=== PATIENT | male | born 1960 | race Caucasian/White ===

== ENCOUNTER 2016-09-28 08:00 | Outpatient (CLI) | payer MEDICARE, MEDICAID ==
[2016-09-28 19:02] LABS: BASOPHILS # (AUTO) 0.1 10^3/uL (0.0-0.1); BASOPHILS % (AUTO) 0.5 %; EOSINOPHILS # (AUTO) 0.1 10^3/uL (0.0-0.7); HCT - HEMATOCRIT 47.6 % (42.0-52.0); HGB - HEMOGLOBIN 16.1 g/dL (14.0-18.0); LYMPHOCYTES # (AUTO) 2.7 10^3/uL (1.5-3.5); LYMPHOCYTES % (AUTO) 25.2 %; MEAN CORPUSCULAR HGB CONC 33.8 g/dL (32.0-36.0); MEAN CORPUSCULAR VOLUME 94.7 fL (80.0-94.0); MEAN PLATELET VOLUME 8.4 fL (7.4-11.4); NEUTROPHILS # (AUTO) 6.8 10^3/uL (1.5-6.6); NEUTROPHILS % (AUTO) 64.3 %; NUCLEATED RED BLOOD CELLS AUTO 0.1 /100WBC; RED BLOOD COUNT 5.03 10^6/uL (4.70-6.10); RED CELL DISTRIBUTION WIDTH 12.5 % (12.0-15.0); UNCORRECTED WHITE BLOOD COUNT 10.5 x10^3/uL; WHITE BLOOD COUNT 10.5 x10^3/uL (4.8-10.8)
[2016-09-28 19:25] LABS: ALBUMIN/GLOBULIN RATIO 1.1 (1.0-2.2); BILIRUBIN,TOTAL 0.7 mg/dL (0.2-1.0); BUN - BLOOD UREA NITROGEN 18 mg/dL (6-20); CALCIUM 8.9 mg/dL (8.5-10.3); CARBON DIOXIDE - CO2 23 mmol/L (21-32); CHLORIDE 99 mmol/L (101-111); CHOL/HDL RATIO 5.2 (<5.0); CHOLESTEROL 203 mg/dL; CREATININE 0.7 mg/dL (0.6-1.2); GFR - MDRD 118 (>89); GLUCOSE 468 mg/dL (70-100); HDL CHOLESTEROL 39 mg/dL; LDL/HDL RATIO 3.2 (<3.6); POTASSIUM 4.3 mmol/L (3.5-5.0); SODIUM 132 mmol/L (135-145); TOTAL PROTEIN 7.4 g/dL (6.7-8.2); TRIGLYCERIDES 191 mg/dL; VLDL CHOLESTEROL 38 mg/dL
[2016-09-28 19:33] LABS: HEMOGLOBIN A1C 2.55 g/dL
[2016-09-30 15:36] LABS: TEST RESULT REPORT (())
== END 2016-09-28 08:01 | disposition home or self-care (01) ==
LOC: LAB.N 08:00
PROVIDERS: ATTEND Family Medicine
DX: Z79.4 Long term (current) use of insulin (principal)
CPT/HCPCS: 36415; 80053; 80061; 81599; 83036; 84681; 85025

== ENCOUNTER 2017-01-26 15:05 | Outpatient (CLI) | payer MEDICARE, MEDICAID ==
[2017-01-26 12:37] LABS: HEMOGLOBIN A1C 2.44 g/dL
[2017-01-26 12:46] LABS: ALBUMIN/GLOBULIN RATIO 0.9 (1.0-2.2); BILIRUBIN,TOTAL 0.7 mg/dL (0.2-1.0); BUN - BLOOD UREA NITROGEN 18 mg/dL (6-20); CARBON DIOXIDE - CO2 24 mmol/L (21-32); CHLORIDE 96 mmol/L (101-111); CHOL/HDL RATIO 5.1 (<5.0); CHOLESTEROL 189 mg/dL; CREATININE 0.6 mg/dL (0.6-1.2); GFR - MDRD 140 (>89); GLUCOSE 430 mg/dL (70-100); HDL CHOLESTEROL 37 mg/dL; LDL/HDL RATIO 3.2 (<3.6); POTASSIUM 4.4 mmol/L (3.5-5.0); SODIUM 132 mmol/L (135-145); TOTAL PROTEIN 8.1 g/dL (6.7-8.2); TRIGLYCERIDES 159 mg/dL; VLDL CHOLESTEROL 32 mg/dL
== END 2017-01-26 15:06 | disposition home or self-care (01) ==
LOC: LAB.N 15:05
PROVIDERS: ATTEND Family Medicine
DX: E78.5 Hyperlipidemia, unspecified (principal); E11.9 Type 2 diabetes mellitus without complications
CPT/HCPCS: 36415; 80053; 80061; 83036

== ENCOUNTER 2017-08-15 08:00 | Outpatient (CLI) | payer MEDICAID, MEDICARE ==
[2017-08-15 19:18] LABS: CREATININE 0.6 mg/dL (0.6-1.2)
[2017-08-15 20:16] LABS: HB2 TOTAL 17.2 g/dL; HEMOGLOBIN A1C 2.43 g/dL; HEMOGLOBIN A1C % 15.1 % (4.6-6.2)
== END 2017-08-15 08:01 | disposition home or self-care (01) ==
LOC: LAB.N 08:00
PROVIDERS: ATTEND Family Medicine
DX: E11.9 Type 2 diabetes mellitus without complications (principal); Z79.4 Long term (current) use of insulin
CPT/HCPCS: 36415; 80048; 83036

== ENCOUNTER 2017-11-21 14:24 | Outpatient (CLI) | payer MEDICARE ==
[2017-11-21 19:18] LABS: CALCIUM 9.5 mg/dL (8.5-10.3); CREATININE 0.5 mg/dL (0.6-1.2)
[2017-11-21 20:21] LABS: HB2 TOTAL 18.1 g/dL; HEMOGLOBIN A1C 2.39 g/dL; HEMOGLOBIN A1C % 14.2 % (4.6-6.2)
== END 2017-11-21 14:25 | disposition home or self-care (01) ==
LOC: LAB.N 14:24
PROVIDERS: ATTEND Family Medicine
DX: E11.65 Type 2 diabetes mellitus with hyperglycemia (principal); Z79.4 Long term (current) use of insulin
CPT/HCPCS: 36415; 80048; 83036

== ENCOUNTER 2017-12-23 12:54 | Emergency (ER) | payer MEDICARE ==
--- NOTE | 2017-12-23 14:20 | ED Physician Documentation ---
PD HPI ABD PAIN - Stated complaint Stated Complaint: LUMP ON LT SIDE - Chief complaint Chief Complaint: Abd Pain - History obtained from History obtained from: Patient - History of Present Illness Timing - onset: How many weeks ago (has noted lump left abd with some tenderness at times for past few weeks. He has had large weight loss in past 6 months due to dieting, over 100 lbs. Had not noted the lump in the past.) Timing - details: Gradual onset, Intermittant (notes it more with standing.) Quality: Aching (at times, has some pain in the area, crampy.), Pain Location: LLQ Radiation: No: Chest, Left flank Associated symptoms: No: Fever, Nausea, Vomiting, Diarrhea Similar symptoms before: Has not had sx before Recently seen: Not recently seen Review of Systems Constitutional: denies: Fever, Chills Nose: denies: Rhinorrhea / runny nose, Congestion Throat: denies: Sore throat Cardiac: denies: Chest pain / pressure Respiratory: denies: Cough GI: reports: Abdominal Pain. denies: Nausea, Vomiting, Constipation, Diarrhea : denies: Dysuria, Frequency Skin: denies: Rash, Lesions PD PAST MEDICAL HISTORY - Past Medical History Cardiovascular: None Respiratory: None Neuro: None Endocrine/Autoimmune: Type 2 diabetes - Past Surgical History Past Surgical History: Yes General: Cholecystectomy - Present Medications Home Medications: Ambulatory Orders Medication Instructions Recorded Confirmed Insulin Glargine [Lantus] 94 units SUBQ DAILY 09/13/13 09/13/13 Captopril 12.5 mg PO DAILY 02/08/16 02/08/16 metFORMIN [Glucophage] 500 mg PO BIDWM 02/08/16 02/08/16 - Allergies Allergies/Adverse Reactions: Allergies Allergy/AdvReac Type Severity Reaction Status Date / Time Penicillins Allergy Rash Verified 12/23/17 13:02 - Social History Does the pt smoke?: Yes Smoking Status: Current every day smoker Does the pt drink ETOH?: No Does the pt have substance abuse?: No - Immunizations Immunizations are current?: No - POLST Patient has POLST: No PD ED PE NORMAL - Vitals Vital signs reviewed: Yes - General General: Alert and oriented X 3, No acute distress, Well developed/nourished - Cardiac Cardiac: RRR, No murmur - Respiratory Respiratory: Clear bilaterally - Abdomen Abdomen: Normal bowel sounds, Soft, Non distended, No organomegaly, Other (some tenderness with lump feeling left low abd (not inguinal) while standing. Has excess soft tissue pannus c/w prior large weight loss. ) - Male Male : Deferred - Rectal Rectal: Deferred - Back Back: No CVA TTP - Derm Derm: Normal color, Warm and dry, No rash - Neuro Neuro: Alert and oriented X 3, No motor deficit, Normal speech Results - Vitals Vitals: Oxygen O2 Source Room air - Labs Labs: Laboratory Tests 12/23/17 12/23/17 14:35 14:35 WBC 10.8 RBC 5.36 Hgb 17.3 Hct 49.3 MCV 92.0 MCH 32.3 H MCHC 35.1 RDW 12.7 Plt Count 258 MPV 7.6 Neut # (Auto) 6.4 Lymph # (Auto) 2.9 [place] # (Auto) 1.1 H Eos # (Auto) 0.2 Baso # (Auto) 0.1 Absolute Nucleated RBC 0.01 Nucleated RBC % 0.1 Sodium 135 Potassium 3.9 Chloride 96 L Carbon Dioxide 29 Anion Gap 10.0 BUN 14 Creatinine 0.5 L Estimated GFR (MDRD) 173 Glucose 313 H Calcium 9.0 Total Bilirubin 0.6 AST 13 ALT 15 Alkaline Phosphatase 60 Total Protein 8.1 Albumin 4.3 Globulin 3.8 Albumin/Globulin Ratio 1.1 Lipase 52 H - Rads (name of study) abd CT Radiology: Prelim report reviewed (some discoid skin thickening left abd but no hernia. ) PD MEDICAL DECISION MAKING - ED course Complexity details: reviewed results (skin thickening left abd on CT but no mass. I don't think this is the process, as it had felt more lumpy with him standing. I don't think skin thickening would have that feel or be dynamic like that. No obvious mass seen per se. ), considered differential (feels like hernia left abd standing, it goes away lying. Does not feel like other mass. Can get CT to ensure not something else structural. ), d/w patient - Sepsis Event Vital Signs: Oxygen O2 Source Room air Departure - Departure Disposition: 01 Home, Self Care Clinical Impression: Abdominal wall hernia Condition: Stable Record reviewed to determine appropriate education?: Yes Instructions: Abdominal Pain Follow-Up: Zen Fuchs MD [Primary Care Provider] - Bulmaro James MD [Provider Admit Priv/Credential] - Comments: There is a small hernia noted in the bellybutton area on the CT scan. The lump you have had is likely this hernia getting begger that protrudes when you are standing or under pressure. He does not show lying down on the CT scan. There are no other masses or abnormalities noted. Your basic blood tests are good. Follow-up with surgery office regarding further evaluation or potential discussion of repair of the hernia. Return if it ever gets very painful hard or does not go away with lying down. Discharge Date/Time: 12/23/17 16:18
[2017-12-23] MEDS ORDERED: IOPAMIDOL-300 100 ML VIAL ONE (14:42)
[2017-12-23 14:47] LABS: BASOPHILS # (AUTO) 0.1 10^3/uL (0.0-0.1); BASOPHILS % (AUTO) 1.2 %; EOSINOPHILS # (AUTO) 0.2 10^3/uL (0.0-0.7); EOSINOPHILS % (AUTO) 1.6 %; HGB - HEMOGLOBIN 17.3 g/dL (14.0-18.0); LYMPHOCYTES # (AUTO) 2.9 10^3/uL (1.5-3.5); LYMPHOCYTES % (AUTO) 26.9 %; MEAN CORPUSCULAR HEMOGLOBIN 32.3 pg (27.0-31.0); MEAN CORPUSCULAR HGB CONC 35.1 g/dL (32.0-36.0); MEAN PLATELET VOLUME 7.6 fL (7.4-11.4); MONOCYTES # (AUTO) 1.1 10^3/uL (0.0-1.0); MONOCYTES % (AUTO) 10.5 %; NEUTROPHILS # (AUTO) 6.4 10^3/uL (1.5-6.6); NEUTROPHILS % (AUTO) 59.8 %; PLT - PLATELET COUNT 258 10^3/uL (130-450); RED BLOOD COUNT 5.36 10^6/uL (4.70-6.10); RED CELL DISTRIBUTION WIDTH 12.7 % (12.0-15.0); WHITE BLOOD COUNT 10.8 x10^3/uL (4.8-10.8)
[2017-12-23 15:00] LABS: ALBUMIN 4.3 g/dL (3.2-5.5); ALBUMIN/GLOBULIN RATIO 1.1 (1.0-2.2); BILIRUBIN,TOTAL 0.6 mg/dL (0.2-1.0); CREATININE 0.5 mg/dL (0.6-1.2); TOTAL PROTEIN 8.1 g/dL (6.7-8.2)
[2017-12-23] MEDS ORDERED: IOPAMIDOL-300 100 ML VIAL IVP ONE (15:18)
--- NOTE | 2017-12-23 15:47 | CT Report ---
Reason: left abd lump/tender; feels like hernia Procedure Date: 12/23/2017 Accession Number: [id number] / [id number] Procedure: CT - Abdomen/Pelvis W/ CPT Code: FULL RESULT: EXAM: CT ABDOMEN AND PELVIS EXAM DATE: 12/23/2017 03:14 PM. CLINICAL HISTORY: Left abd lump/tender; feels like hernia. COMPARISONS: MRCP 05/30/2012. MRI of pelvis 08/07/2008. TECHNIQUE: Routine helical CT imaging was performed through the abdomen and pelvis. IV contrast: 100 cc Isovue-300. Enteric contrast: No. Reconstructions: Coronal and sagittal. In accordance with CT protocol optimization, one or more of the following dose reduction techniques were utilized for this exam: automated exposure control, adjustment of mA and/or KV based on patient size, or use of iterative reconstructive technique. FINDINGS: Lung Bases: Unremarkable. Liver: Normal. No masses. Gallbladder/Bile Ducts: Gallbladder surgically absent. No ductal dilatation. Spleen: Normal. Pancreas: Normal. Adrenal Glands: 1.6 x 1.2 cm low-density, and then right adrenal nodule suggesting an adenoma. Left adrenal gland unremarkable. Kidneys: Normal. No masses or hydronephrosis. Peritoneal Cavity/Bowel: Unopacified stomach and small bowel are nondistended. Appendix is normal. There is a small amount of formed stool in the colon. There is no pericolonic fat stranding. There is no lymphadenopathy, ascites, or pneumoperitoneum. Pelvic Organs: Bladder, prostate gland, and seminal vesicles are unremarkable. Vasculature: Mild aortoiliac atherosclerotic calcification without abnormal dilation. Bones: No significant abnormality. Other: No marker was placed at the area of concern. There is an area of minimal skin thickening measuring about 4 cm transverse by 5 cm craniocaudal in the left mid abdomen slightly above the level of the umbilicus centered on series 3 image 45 and series 6 image 25. No right testis or spermatic cord is identified, as before. Obliquely oriented right upper quadrant anterior abdominal wall subcutaneous scar and mild right rectus abdominis muscle atrophy. Abdominal wall otherwise is unremarkable. IMPRESSION: 1. 4 x 5 cm diskoid area of minimal skin thickening in the left mid abdomen. Correlate with physical examination. Skin biopsy can be performed as clinically indicated. 2. Right testis and spermatic cord are not visualized, as before. 3. Right upper quadrant anterior abdominal wall scar consistent with prior cholecystectomy. 4. Abdominal wall otherwise is unremarkable. No hernia is identified. RADIA
[2017-12-23 16:20] VITALS: BP 127/82
== END 2017-12-23 16:18 | disposition home or self-care (01) ==
LOC: ED 12:54
DX: K43.9 Ventral hernia without obstruction or gangrene (principal); E11.9 Type 2 diabetes mellitus without complications; Z79.4 Long term (current) use of insulin; F17.200 Nicotine dependence, unspecified, uncomplicated
CPT/HCPCS: 36415; 74177; 80053; 83690; 85025; 99283; Q9967

== ENCOUNTER 2018-02-21 08:00 | Outpatient (CLI) | payer MEDICARE ==
[2018-02-21 12:53] LABS: CALCIUM 9.4 mg/dL (8.5-10.3); CREATININE 0.5 mg/dL (0.6-1.2); HB2 TOTAL 17.9 g/dL; HEMOGLOBIN A1C 2.12 g/dL
== END 2018-02-21 08:01 ==
LOC: LAB.N 08:00
PROVIDERS: ATTEND Family Medicine
DX: E11.65 Type 2 diabetes mellitus with hyperglycemia (principal); Z79.4 Long term (current) use of insulin
CPT/HCPCS: 36415; 80048; 83036

== ENCOUNTER 2018-08-03 12:10 | Emergency (ER) | payer MEDICARE ==
[2018-08-03] MEDS ORDERED: SODIUM CHLORIDE 0.9% 1,000 ML IV ONE (13:08)
[2018-08-03 13:34] LABS: BASOPHILS # (AUTO) 0.1 10^3/uL (0.0-0.1); BASOPHILS % (AUTO) 1.3 %; EOSINOPHILS # (AUTO) 0.2 10^3/uL (0.0-0.7); HGB - HEMOGLOBIN 16.1 g/dL (14.0-18.0); LYMPHOCYTES # (AUTO) 1.6 10^3/uL (1.5-3.5); LYMPHOCYTES % (AUTO) 17.5 %; MEAN CORPUSCULAR HEMOGLOBIN 31.5 pg (27.0-31.0); MEAN CORPUSCULAR HGB CONC 33.9 g/dL (32.0-36.0); MEAN CORPUSCULAR VOLUME 92.7 fL (80.0-94.0); MEAN PLATELET VOLUME 7.9 fL (7.4-11.4); MONOCYTES # (AUTO) 0.8 10^3/uL (0.0-1.0); MONOCYTES % (AUTO) 8.6 %; NEUTROPHILS # (AUTO) 6.5 10^3/uL (1.5-6.6); NEUTROPHILS % (AUTO) 70.6 %; PLT - PLATELET COUNT 235 10^3/uL (130-450); RED BLOOD COUNT 5.13 10^6/uL (4.70-6.10); RED CELL DISTRIBUTION WIDTH 12.9 % (12.0-15.0); WHITE BLOOD COUNT 9.3 x10^3/uL (4.8-10.8)
[2018-08-03 13:47] LABS: ALBUMIN 4.1 g/dL (3.2-5.5); BILIRUBIN,TOTAL 1.2 mg/dL (0.2-1.0); CALCIUM 9.2 mg/dL (8.5-10.3); CREATININE 0.6 mg/dL (0.6-1.2); TOTAL PROTEIN 8.1 g/dL (6.7-8.2)
[2018-08-03 14:17] LABS: BILIRUBIN,URINE NEGATIVE (NEGATIVE); GLUCOSE, URINE (UA) >=1000 mg/dL (NEGATIVE); KETONES,URINE (UA) >=80 mg/dL (NEGATIVE); LEUKOCYTE ESTERASE, URINE NEGATIVE (NEGATIVE); NITRITE,URINE NEGATIVE (NEGATIVE); OCCULT BLOOD,URINE TRACE-INTA (NEGATIVE); PH,URINE 5.5 PH (5.0-7.5); PROTEIN,URINE NEGATIVE (NEGATIVE); UROBILINOGEN,URINE 0.2 (NORMAL) E.U./dL (NORMAL)
[2018-08-03 14:18] LABS: CLARITY,URINE CLEAR (CLEAR)
[2018-08-03] MEDS ORDERED: INSULIN REGULAR HUMAN 100 UNIT/1 ML 10 ML MDV SUBQ STA (14:41)
--- NOTE | 2018-08-03 15:49 | ED Physician Documentation ---
History of Present Illness - Stated complaint Stated Complaint: DIABETIC W/A LOT OF URNIATION DOC SENT PT - Chief complaint Chief Complaint: General - History obtained from History obtained from: Patient - Additonal information Additional information: The patient is a 58-year-old diabetic male who complains of generalized weakness and no energy for the past month, but worse since last night. He has not taken insulin for several months, stating he is unable to afford the medication since he is no longer covered by a prescription drug. He denies fever, cough, or abdominal pain. He reports nausea, without vomiting. He reports polyuria and polyphagia. Review of Systems Constitutional: reports: Fatigue. denies: Fever Eyes: denies: Decreased vision Ears: denies: Tinnitus/ringing Nose: denies: Congestion Throat: denies: Sore throat Cardiac: denies: Chest pain / pressure Respiratory: denies: Dyspnea, Cough GI: reports: Nausea. denies: Abdominal Pain, Vomiting : denies: Dysuria Skin: denies: Rash Musculoskeletal: denies: Back pain Neurologic: reports: Generalized weakness. denies: Focal weakness, Numbness, Headache Endocrine: reports: Polydypsia, Polyuria PD PAST MEDICAL HISTORY - Past Medical History Cardiovascular: None Respiratory: None Neuro: None Endocrine/Autoimmune: Type 2 diabetes - Past Surgical History Past Surgical History: Yes General: Cholecystectomy - Present Medications Home Medications: Ambulatory Orders Medication Instructions Recorded Confirmed Insulin Glargine [Lantus] 94 units SUBQ DAILY 09/13/13 09/13/13 Captopril 12.5 mg PO DAILY 02/08/16 02/08/16 metFORMIN [Glucophage] 500 mg PO BIDWM 02/08/16 02/08/16 metFORMIN [Glucophage] 500 mg PO BIDWM #60 tablet 08/03/18 - Allergies Allergies/Adverse Reactions: Allergies Allergy/AdvReac Type Severity Reaction Status Date / Time Penicillins Allergy Rash Verified 08/03/18 12:24 - Social History Does the pt smoke?: Yes Smoking Status: Current every day smoker Does the pt drink ETOH?: No Does the pt have substance abuse?: No - Immunizations Immunizations are current?: No - POLST Patient has POLST: No PD ED PE NORMAL - Vitals Vital signs reviewed: Yes (Borderline systolic hypertension.) - General General: Alert and oriented X 3, Well developed/nourished - HEENT HEENT: Atraumatic, Pharynx benign - Neck Neck: Supple, no meningeal sign, No adenopathy - Cardiac Cardiac: RRR - Respiratory Respiratory: No respiratory distress, Clear bilaterally - Abdomen Abdomen: Soft, Non tender - Back Back: No CVA TTP - Derm Derm: No rash - Extremities Extremities: No edema, No calf tenderness / cord - Neuro Neuro: Alert and oriented X 3, No motor deficit, No sensory deficit Results - Vitals Vitals: Oxygen O2 Source Room air - Labs Labs: Laboratory Tests 08/03/18 08/03/18 08/03/18 12:20 13:14 13:14 WBC 9.3 RBC 5.13 Hgb 16.1 Hct 47.5 MCV 92.7 MCH 31.5 H MCHC 33.9 RDW 12.9 Plt Count 235 MPV 7.9 Neut # (Auto) 6.5 Lymph # (Auto) 1.6 [place] # (Auto) 0.8 Eos # (Auto) 0.2 Baso # (Auto) 0.1 Absolute Nucleated RBC 0.00 Nucleated RBC % 0.0 Sodium 133 L Potassium 4.5 Chloride 97 L Carbon Dioxide 22 Anion Gap 14.0 H BUN 19 Creatinine 0.6 Estimated GFR (MDRD) 139 Glucose 366 H POC Whole Bld Glucose 364 H Calcium 9.2 Total Bilirubin 1.2 H AST 14 ALT 16 Alkaline Phosphatase 56 Total Protein 8.1 Albumin 4.1 Globulin 4.0 Albumin/Globulin Ratio 1.0 Lipase 59 H Urine Color Urine Clarity Urine pH Ur Specific [place] Urine Protein Urine Glucose (UA) Urine Ketones Urine Occult Blood Urine Nitrite Urine Bilirubin Urine Urobilinogen Ur Leukocyte Esterase Ur Microscopic Review Urine Culture Comments 08/03/18 08/03/18 08/03/18 14:10 14:29 15:44 WBC RBC Hgb Hct MCV MCH MCHC RDW Plt Count MPV Neut # (Auto) Lymph # (Auto) [place] # (Auto) Eos # (Auto) Baso # (Auto) Absolute Nucleated RBC Nucleated RBC % Sodium Potassium Chloride Carbon Dioxide Anion Gap BUN Creatinine Estimated GFR (MDRD) Glucose POC Whole Bld Glucose 300 H 251 H Calcium Total Bilirubin AST ALT Alkaline Phosphatase Total Protein Albumin Globulin Albumin/Globulin Ratio Lipase Urine Color YELLOW Urine Clarity CLEAR Urine pH 5.5 Ur Specific [place] 1.020 Urine Protein NEGATIVE Urine Glucose (UA) >=1000 H Urine Ketones >=80 H Urine Occult Blood TRACE-INTA Urine Nitrite NEGATIVE Urine Bilirubin NEGATIVE Urine Urobilinogen 0.2 (NORMAL) Ur Leukocyte Esterase NEGATIVE Ur Microscopic Review NOT INDICATED Urine Culture Comments NOT INDICATED PD MEDICAL DECISION MAKING - ED course Complexity details: reviewed old records, reviewed results, re-evaluated patient, considered differential, d/w patient ED course: The patient's presentation is significant for hyperglycemia, without diabetic ketoacidosis. His initial blood sugar was elevated at 366. His bicarbonate is normal at 22. BUN to creatinine ratio is slightly elevated, with a BUN of 19 and creatinine 0.6. Urinalysis is significant for glucose greater than 1000 and ketones greater than 80. Treatment in the emergency department included administration of normal saline 1 L IV, and insulin 8 units of regular subcutaneously. Repeat blood sugar improved to 251. I discussed with him the importance of resuming his diabetic medication. He advises that there is no way he can afford to resume insulin, but he agrees to fill a prescription for metformin. I discussed with him the importance of outpatient follow-up, as well as potentially worrisome signs or symptoms that should prompt reevaluation is needed emergency department. Departure - Departure Disposition: Home, Self Care Clinical Impression: Hyperglycemia due to type 2 diabetes mellitus Qualifiers: Diabetes mellitus fpc insulin use: without intermodal owner operator truck driver use Qualified Code(s): E11.65 - Type 2 diabetes mellitus with hyperglycemia Condition: Stable Instructions: ED Hyperglycemia Diabetic Follow-Up: [facility] [Provider Group] Prescriptions: metFORMIN [Glucophage] 500 mg PO BIDWM #60 tablet Comments: Drink plenty of fluids. Take metformin twice daily as prescribed. Follow-up with your primary physician within 1 week if possible. Call to schedule an appointment. Return to the emergency department if you develop increasing abdominal pain, vomiting, shortness of breath, or otherwise worsening symptoms. Discharge Date/Time: 08/03/18 15:51
[2018-08-03 16:00] VITALS: BP 129/82
== END 2018-08-03 15:51 | disposition home or self-care (01) ==
LOC: ED 12:10
DX: E11.65 Type 2 diabetes mellitus with hyperglycemia (principal); T38.3X6A Underdosing of insulin and oral hypoglycemic [antidiabetic] drugs, initial encounter; Z91.120 Patient's intentional underdosing of medication regimen due to financial hardship; F17.200 Nicotine dependence, unspecified, uncomplicated
CPT/HCPCS: 36415; 80053; 81003; 83690; 85025; 96360; 99283; J1815; 81001; 87086

== ENCOUNTER 2018-10-30 08:00 | Outpatient (CLI) | payer MEDICARE ==
[2018-10-30 20:19] LABS: HB2 TOTAL 16.2 g/dL; HEMOGLOBIN A1C 2.39 g/dL; HEMOGLOBIN A1C % 15.6 % (4.6-6.2)
== END 2018-10-30 23:59 | disposition home or self-care (01) ==
LOC: LAB.N 08:00
PROVIDERS: ATTEND Physician Assistant Medical
DX: E11.40 Type 2 diabetes mellitus with diabetic neuropathy, unspecified (principal)
CPT/HCPCS: 36415; 83036

== ENCOUNTER 2019-04-18 10:41 | Outpatient (CLI) | payer MEDICARE ==
[2019-04-18 11:57] LABS: ALBUMIN 3.6 g/dL (3.2-5.5); ALKALINE PHOSPHATASE 45 IU/L (42-121); ALT ALANINE AMINOTRANSFERASE 16 IU/L (10-60); AST ASPARTATE AMINOTRANSFERASE 12 IU/L (10-42); BILIRUBIN,TOTAL 0.6 mg/dL (0.2-1.0); BUN - BLOOD UREA NITROGEN 13 mg/dL (6-20); CALCIUM 8.8 mg/dL (8.5-10.3); CARBON DIOXIDE - CO2 28 mmol/L (21-32); CHLORIDE 96 mmol/L (101-111); CHOL/HDL RATIO 4.6 (<5.0); CHOLESTEROL 205 mg/dL; CREATININE 0.6 mg/dL (0.6-1.2); GFR - MDRD 139 (>89); GLUCOSE 490 mg/dL (70-100); HDL CHOLESTEROL 45 mg/dL; LDL CHOLESTEROL,CALCULATED 116 mg/dL; LDL/HDL RATIO 2.6 (<3.6); SODIUM 136 mmol/L (135-145); TOTAL PROTEIN 7.2 g/dL (6.7-8.2); VLDL CHOLESTEROL 44 mg/dL
[2019-04-18 13:51] LABS: BASOPHILS # (AUTO) 0.1 10^3/uL (0.0-0.1); BASOPHILS % (AUTO) 0.9 %; EOSINOPHILS # (AUTO) 0.2 10^3/uL (0.0-0.7); HGB - HEMOGLOBIN 15.6 g/dL (14.0-18.0); LYMPHOCYTES # (AUTO) 2.3 10^3/uL (1.5-3.5); LYMPHOCYTES % (AUTO) 22.6 %; MEAN CORPUSCULAR HEMOGLOBIN 30.3 pg (27.0-31.0); MEAN CORPUSCULAR HGB CONC 32.3 g/dL (32.0-36.0); MEAN CORPUSCULAR VOLUME 93.8 fL (80.0-94.0); MEAN PLATELET VOLUME 9.9 fL (7.4-11.4); MONOCYTES % (AUTO) 9.7 %; NEUTROPHILS # (AUTO) 6.6 10^3/uL (1.5-6.6); NEUTROPHILS % (AUTO) 64.4 %; PLT - PLATELET COUNT 272 10^3/uL (130-450); RED BLOOD COUNT 5.15 10^6/uL (4.70-6.10); RED CELL DISTRIBUTION WIDTH 12.7 % (12.0-15.0); WHITE BLOOD COUNT 10.2 x10^3/uL (4.8-10.8)
[2019-04-18 14:56] LABS: HB2 TOTAL 15.5 g/dL; HEMOGLOBIN A1C 2.06 g/dL; HEMOGLOBIN A1C % 14.3 % (4.6-6.2)
== END 2019-04-18 23:59 | disposition home or self-care (01) ==
LOC: LAB.N 10:41
PROVIDERS: ATTEND Physician Assistant Medical
DX: E11.65 Type 2 diabetes mellitus with hyperglycemia (principal); Z79.4 Long term (current) use of insulin; K21.9 Gastro-esophageal reflux disease without esophagitis; E78.5 Hyperlipidemia, unspecified; E11.40 Type 2 diabetes mellitus with diabetic neuropathy, unspecified
CPT/HCPCS: 36415; 80053; 80061; 83036; 83721; 85025

== ENCOUNTER 2019-11-10 21:12 | Emergency (ER) | payer MEDICARE ==
[2019-11-10 21:20] VITALS: BP 133/72
--- NOTE | 2019-11-10 21:26 | ED Physician Documentation ---
History of Present Illness - Stated complaint Stated Complaint: BILAT FOOT PX/DIABETIC - Chief complaint Chief Complaint: Cardiac - History obtained from History obtained from: Patient - Additonal information Additional information: Patient is a 59-year-old male who is insulin-dependent diabetic reports he is not been checking his blood sugars. However tonight he is here because he is noticed some paresthesias in his feet and he would like to be evaluated. He denies any pain in his feet he does report some minimal swelling of the feet that is worse when he has been standing on his feet all day long but is improved when he wakes up in the morning. He denies any fevers or any trauma or open wounds to the feet. Denies any other complaints. Review of Systems Constitutional: reports: Reviewed and negative Eyes: reports: Reviewed and negative Ears: reports: Reviewed and negative Nose: reports: Reviewed and negative Throat: reports: Reviewed and negative Cardiac: reports: Reviewed and negative Respiratory: reports: Reviewed and negative GI: reports: Reviewed and negative : reports: Reviewed and negative Skin: reports: Reviewed and negative Musculoskeletal: reports: Other (Bilateral foot paresthesias) Neurologic: reports: Reviewed and negative Psychiatric: reports: Reviewed and negative Endocrine: reports: Reviewed and negative Immunocompromised: reports: Reviewed and negative PD PAST MEDICAL HISTORY - Past Medical History Cardiovascular: None Respiratory: None Neuro: None Endocrine/Autoimmune: Type 2 diabetes - Past Surgical History Past Surgical History: Yes General: Cholecystectomy - Present Medications Home Medications: Ambulatory Orders Medication Instructions Recorded Confirmed Insulin Glargine [Lantus] 94 units SUBQ DAILY 09/13/13 09/13/13 Captopril 12.5 mg PO DAILY 02/08/16 02/08/16 metFORMIN [Glucophage] 500 mg PO BIDWM 02/08/16 02/08/16 metFORMIN [Glucophage] 500 mg PO BIDWM #60 tablet 08/03/18 - Allergies Allergies/Adverse Reactions: Allergies Allergy/AdvReac Type Severity Reaction Status Date / Time Penicillins Allergy Rash Verified 11/10/19 21:20 - Social History Does the pt smoke?: Yes Smoking Status: Current every day smoker Does the pt drink ETOH?: No Does the pt have substance abuse?: No - Immunizations Immunizations are current?: No - POLST Patient has POLST: No PD ED PE NORMAL - Vitals Vital signs reviewed: Yes - General General: Alert and oriented X 3, No acute distress, Well developed/nourished - HEENT HEENT: PERRL, Moist mucous membranes - Neck Neck: Supple, no meningeal sign, No adenopathy - Cardiac Cardiac: RRR, No murmur, Strong equal pulses - Respiratory Respiratory: No respiratory distress, Clear bilaterally - Abdomen Abdomen: Normal bowel sounds, Soft, Non tender, Non distended, No organomegaly - Derm Derm: Normal color, Warm and dry, No rash - Extremities Extremities: No deformity, No tenderness to palpate, Normal ROM s pain, No edema, No calf tenderness / cord, Other (Bilateral feet with no obvious deformities sensations intact. 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 He does have insulin he is going to follow- up with his primary care provider tomorrow morning. Educated this patient on protection of his feet and the importance of checking his blood sugars. Departure - Departure Disposition: 01 Home, Self Care Clinical Impression: Insulin dependent diabetes mellitus, Hyperglycemia Diabetic neuropathy Qualifiers: Diabetes mellitus type: other specified (including GEORGE) Diabetes mellitus complication detail: diabetic polyneuropathy Qualified Code(s): E13.42 - Other specified diabetes mellitus with diabetic polyneuropathy Condition: Stable Instructions: Diabetes Inspect Feet, ED Neuropathy Peripheral Follow-Up: JUAN GREENE MD [Primary Care Provider] - Tomorrow Comments: Follow-up with your primary care provider tomorrow. Use your insulin as directed.
== END 2019-11-10 22:15 | disposition home or self-care (01) ==
LOC: ED 21:12
DX: E11.65 Type 2 diabetes mellitus with hyperglycemia (principal); E11.40 Type 2 diabetes mellitus with diabetic neuropathy, unspecified; F17.200 Nicotine dependence, unspecified, uncomplicated; Z79.4 Long term (current) use of insulin
CPT/HCPCS: 99282; 99284

== ENCOUNTER 2020-03-30 23:21 | Emergency (ER) | payer MEDICARE, OTHER ==
--- NOTE | 2020-03-31 00:41 | ED Physician Documentation ---
History of Present Illness - Stated complaint Stated Complaint: RT FOOT PROBLEMS - Chief complaint Chief Complaint: Wound - History obtained from History obtained from: Patient - History of Present Illness Timing: Enter time (18:00), Today Pain level max: 0 Pain level now: 0 - Additonal information Additional information: tonight at 6PM while in shower, patient noticed mild redness, swelling, and skin breakdown of right great and second toe. he had similar problem with left toes in the past which initially responded to antibiotics but eventually required amputation. he has h/o left-sided lower extremity vascular surgery for PVD. he is diabetic and has peripheral neuropathy Review of Systems Constitutional: reports: Reviewed and negative Musculoskeletal: reports: Extremity swelling. denies: Pain with weight bearing Neurologic: reports: Numbness (chronic (peripheral neuropathy)) PD PAST MEDICAL HISTORY - Past Medical History Past Medical History: Yes Cardiovascular: High cholesterol, Peripheral Vascular Disease Respiratory: None Neuro: None Endocrine/Autoimmune: Type 2 diabetes HEENT: None - Past Surgical History Past Surgical History: Yes General: Cholecystectomy - Present Medications Home Medications: Ambulatory Orders Medication Instructions Recorded Confirmed Insulin Glargine [Lantus] 30 units SUBQ DAILY 09/13/13 03/31/20 metFORMIN [Glucophage] 500 mg PO BIDWM #60 tablet 08/03/18 03/31/20 Atorvastatin [Lipitor] 03/31/20 Clopidogrel [Plavix] 75 mg PO DAILY 03/31/20 03/31/20 Insulin Aspart [NovoLOG] 5 unit 03/31/20 clindamycin HCL [Clindamycin HCl] 300 mg PO QID #20 capsule 03/31/20 - Allergies Allergies/Adverse Reactions: Allergies Allergy/AdvReac Type Severity Reaction Status Date / Time Penicillins Allergy Rash Verified 03/30/20 23:25 - Social History Does the pt smoke?: Yes Smoking Status: Current every day smoker Does the pt drink ETOH?: No Does the pt have substance abuse?: No - Immunizations Immunizations are current?: No - POLST Patient has POLST: No PD ED PE NORMAL - Vitals Vital signs reviewed: Yes - General General: Alert and oriented X 3, No acute distress, Well developed/nourished PD ED PE EXPANDED - Extremities Extremities: Right toe(s), Pedal Pulses Present, Other (mild erythema, mild swelling of right great and second toes. on pad of right great toe, there is mild skin breakdown without paula ulceration. on pad of 2nd toe, there is firm, clear blister). No: Tenderness Results - Vitals Vitals: Oxygen O2 Source Room air PD MEDICAL DECISION MAKING - ED course Complexity details: considered differential, d/w patient ED course: diabetic with peripheral neuropathy and h/o amputation of left toes and subsequent surgery to address poor circulation LLMarie, presents with symptoms in right toes similar to early stages of same problem that he had with toes on left. there is no evidence of acute ischemia nor infarcted tissue; the right great toe and second toe appear hyperemic and there is mild skin breakdown. will rx antibiotic for possible infection but instructed to f/u with his doctor, as peripheral vascular disease jght be a causative or contributing factor which might benefit from outpatient testing Departure - Departure Disposition: 01 Home, Self Care Clinical Impression: Diabetic neuropathy, Toe ulcer due to DM Condition: Good Instructions: ED Infec Skin Cellulitis Prescriptions: clindamycin HCL [Clindamycin HCl] 300 mg PO QID #20 capsule Comments: Follow up with your primary care provider within 3-5 days for recheck of the toes Discharge Date/Time: 03/31/20 01:13
[2020-03-31] MEDS ORDERED: CLINDAMYCIN 150 MG CAPSULE PO STA (01:02)
[2020-03-31 01:13] VITALS: BP 150/78
== END 2020-03-31 01:13 | disposition home or self-care (01) ==
LOC: ED 23:21
DX: E11.621 Type 2 diabetes mellitus with foot ulcer (principal); L97.511 Non-pressure chronic ulcer of other part of right foot limited to breakdown of skin; E11.42 Type 2 diabetes mellitus with diabetic polyneuropathy; E11.51 Type 2 diabetes mellitus with diabetic peripheral angiopathy without gangrene; Z79.4 Long term (current) use of insulin; Z89.422 Acquired absence of other left toe(s); F17.200 Nicotine dependence, unspecified, uncomplicated; Z79.02 Long term (current) use of antithrombotics/antiplatelets
CPT/HCPCS: 99281; 99282; A9270

== ENCOUNTER 2020-08-04 08:00 | Outpatient (CLI) | payer MEDICARE ==
[2020-08-04 13:04] LABS: BASOPHILS # (AUTO) 0.1 10^3/uL (0.0-0.1); BASOPHILS % (AUTO) 0.6 %; EOSINOPHILS # (AUTO) 0.2 10^3/uL (0.0-0.7); EOSINOPHILS % (AUTO) 2.2 %; HCT - HEMATOCRIT 47.5 % (42.0-52.0); HGB - HEMOGLOBIN 15.5 g/dL (14.0-18.0); LYMPHOCYTES # (AUTO) 2.2 10^3/uL (1.5-3.5); LYMPHOCYTES % (AUTO) 19.8 %; MEAN CORPUSCULAR HEMOGLOBIN 31.2 pg (27.0-31.0); MEAN CORPUSCULAR HGB CONC 32.6 g/dL (32.0-36.0); MEAN CORPUSCULAR VOLUME 95.6 fL (80.0-94.0); MONOCYTES # (AUTO) 1.1 10^3/uL (0.0-1.0); MONOCYTES % (AUTO) 10.1 %; NEUTROPHILS # (AUTO) 7.4 10^3/uL (1.5-6.6); PLT - PLATELET COUNT 264 10^3/uL (130-450); RED BLOOD COUNT 4.97 10^6/uL (4.70-6.10); RED CELL DISTRIBUTION WIDTH 12.4 % (12.0-15.0)
[2020-08-04 13:25] LABS: ALBUMIN 3.9 g/dL (3.2-5.5); ALBUMIN/GLOBULIN RATIO 1.1 (1.0-2.2); ALKALINE PHOSPHATASE 54 IU/L (42-121); ALT ALANINE AMINOTRANSFERASE 12 IU/L (10-60); AST ASPARTATE AMINOTRANSFERASE 11 IU/L (10-42); BILIRUBIN,TOTAL 0.6 mg/dL (0.2-1.0); BUN - BLOOD UREA NITROGEN 17 mg/dL (6-20); CALCIUM 9.5 mg/dL (8.5-10.3); CARBON DIOXIDE - CO2 28 mmol/L (21-32); CHLORIDE 101 mmol/L (101-111); CHOL/HDL RATIO 5.3 (<5.0); CHOLESTEROL 259 mg/dL; CREATININE 0.7 mg/dL (0.6-1.2); GFR - MDRD 116 (>89); GLUCOSE 394 mg/dL (70-100); HDL CHOLESTEROL 49 mg/dL; LDL CHOLESTEROL,CALCULATED 146 mg/dL; POTASSIUM 4.1 mmol/L (3.5-5.0); SODIUM 139 mmol/L (135-145); TOTAL PROTEIN 7.4 g/dL (6.7-8.2); TRIGLYCERIDES 322 mg/dL; VLDL CHOLESTEROL 64 mg/dL
[2020-08-04 13:31] LABS: THYROID STIMULATING HORMONE 1.86 uIU/mL (0.34-5.60)
[2020-08-04 13:42] LABS: ESTIMATED AVERAGE GLUCOSE 364 mg/dL (70-100); HEMOGLOBIN A1c% 14.3 % (4.27-6.07)
== END 2020-08-04 23:59 | disposition home or self-care (01) ==
LOC: LAB.WCP 08:00
PROVIDERS: ATTEND Nurse Practitioner Family
DX: E78.5 Hyperlipidemia, unspecified (principal); E11.9 Type 2 diabetes mellitus without complications
CPT/HCPCS: 36415; 80053; 80061; 83036; 83721; 84443; 85025

== ENCOUNTER 2020-11-20 08:00 | Outpatient (CLI) | payer MEDICARE ==
[2020-11-20 18:10] LABS: BASOPHILS # (AUTO) 0.1 10^3/uL (0.0-0.1); BASOPHILS % (AUTO) 0.7 %; EOSINOPHILS # (AUTO) 0.3 10^3/uL (0.0-0.7); EOSINOPHILS % (AUTO) 2.4 %; HCT - HEMATOCRIT 48.1 % (42.0-52.0); HGB - HEMOGLOBIN 15.7 g/dL (14.0-18.0); LYMPHOCYTES # (AUTO) 1.8 10^3/uL (1.5-3.5); LYMPHOCYTES % (AUTO) 16.7 %; MEAN CORPUSCULAR HEMOGLOBIN 31.2 pg (27.0-31.0); MEAN CORPUSCULAR HGB CONC 32.6 g/dL (32.0-36.0); MEAN CORPUSCULAR VOLUME 95.4 fL (80.0-94.0); MEAN PLATELET VOLUME 10.2 fL (7.4-11.4); MONOCYTES # (AUTO) 1.1 10^3/uL (0.0-1.0); MONOCYTES % (AUTO) 10.4 %; NEUTROPHILS # (AUTO) 7.5 10^3/uL (1.5-6.6); NEUTROPHILS % (AUTO) 69.4 %; PLT - PLATELET COUNT 257 10^3/uL (130-450); RED BLOOD COUNT 5.04 10^6/uL (4.70-6.10); RED CELL DISTRIBUTION WIDTH 12.3 % (12.0-15.0); WHITE BLOOD COUNT 10.8 x10^3/uL (4.8-10.8)
[2020-11-20 18:51] LABS: CREATININE,URINE 25.9 mg/dL; MICROALBUM/CREATININE RATIO,UR 544.4 ug/mg (<30.0); MICROALBUMIN,URINE 14.1 mg/dL (0-300.0)
[2020-11-20 18:56] LABS: ALBUMIN/GLOBULIN RATIO 1.1 (1.0-2.2); ALKALINE PHOSPHATASE 53 IU/L (42-121); ALT ALANINE AMINOTRANSFERASE 14 IU/L (10-60); AST ASPARTATE AMINOTRANSFERASE < 10 IU/L (10-42); BILIRUBIN,TOTAL 0.8 mg/dL (0.2-1.0); BUN - BLOOD UREA NITROGEN 20 mg/dL (6-20); CALCIUM 9.4 mg/dL (8.5-10.3); CARBON DIOXIDE - CO2 29 mmol/L (21-32); CHLORIDE 97 mmol/L (101-111); CHOL/HDL RATIO 5.2 (<5.0); CHOLESTEROL 238 mg/dL; CREATININE 0.8 mg/dL (0.6-1.2); GFR - MDRD 99 (>89); GLUCOSE 489 mg/dL (70-100); HDL CHOLESTEROL 46 mg/dL; LDL CHOLESTEROL,CALCULATED 138 mg/dL; POTASSIUM 4.7 mmol/L (3.5-5.0); SODIUM 135 mmol/L (135-145); TOTAL PROTEIN 7.8 g/dL (6.7-8.2); TRIGLYCERIDES 272 mg/dL; VLDL CHOLESTEROL 54 mg/dL
[2020-11-20 21:28] LABS: ESTIMATED AVERAGE GLUCOSE 364 mg/dL (70-100); HEMOGLOBIN A1c% 14.3 % (4.27-6.07)
== END 2020-11-20 23:59 | disposition home or self-care (01) ==
LOC: LAB.WCP 08:00
PROVIDERS: ATTEND Internal Medicine
DX: E11.40 Type 2 diabetes mellitus with diabetic neuropathy, unspecified (principal); Z12.5 Encounter for screening for malignant neoplasm of prostate
CPT/HCPCS: 36415; 80053; 80061; 82043; 82570; 83036; 85025; G0103; 83721; 84153

== ENCOUNTER 2021-06-26 11:07 | Outpatient (CLI) | payer MEDICARE ==
[2021-06-26 14:15] LABS: BASOPHILS # (AUTO) 0.1 10^3/uL (0.0-0.1); EOSINOPHILS # (AUTO) 0.3 10^3/uL (0.0-0.7); EOSINOPHILS % (AUTO) 3.5 %; HCT - HEMATOCRIT 44.5 % (42.0-52.0); HGB - HEMOGLOBIN 14.4 g/dL (14.0-18.0); LYMPHOCYTES # (AUTO) 2.2 10^3/uL (1.5-3.5); LYMPHOCYTES % (AUTO) 25.4 %; MEAN CORPUSCULAR HEMOGLOBIN 30.3 pg (27.0-31.0); MEAN CORPUSCULAR HGB CONC 32.4 g/dL (32.0-36.0); MEAN CORPUSCULAR VOLUME 93.7 fL (80.0-94.0); MEAN PLATELET VOLUME 9.9 fL (7.4-11.4); MONOCYTES % (AUTO) 10.9 %; NEUTROPHILS # (AUTO) 5.2 10^3/uL (1.5-6.6); NEUTROPHILS % (AUTO) 58.9 %; PLT - PLATELET COUNT 266 10^3/uL (130-450); RED BLOOD COUNT 4.75 10^6/uL (4.70-6.10); RED CELL DISTRIBUTION WIDTH 12.2 % (12.0-15.0); WHITE BLOOD COUNT 8.8 x10^3/uL (4.8-10.8)
[2021-06-26 14:35] LABS: ALBUMIN 3.4 g/dL (3.2-5.5); ALKALINE PHOSPHATASE 54 IU/L (42-121); ALT ALANINE AMINOTRANSFERASE 13 IU/L (10-60); AST ASPARTATE AMINOTRANSFERASE 12 IU/L (10-42); BILIRUBIN,TOTAL 0.5 mg/dL (0.2-1.0); BUN - BLOOD UREA NITROGEN 21 mg/dL (6-20); CALCIUM 9.1 mg/dL (8.5-10.3); CARBON DIOXIDE - CO2 26 mmol/L (21-32); CHLORIDE 104 mmol/L (101-111); CHOL/HDL RATIO 4.9 (<5.0); CHOLESTEROL 209 mg/dL; CREATININE 0.7 mg/dL (0.6-1.2); GFR - MDRD 115 (>89); GLUCOSE 253 mg/dL (70-100); HDL CHOLESTEROL 43 mg/dL; LDL CHOLESTEROL,CALCULATED 127 mg/dL; POTASSIUM 4.3 mmol/L (3.5-5.0); SODIUM 138 mmol/L (135-145); TOTAL PROTEIN 6.9 g/dL (6.7-8.2); TRIGLYCERIDES 195 mg/dL; VLDL CHOLESTEROL 39 mg/dL
[2021-06-26 14:44] LABS: ESTIMATED AVERAGE GLUCOSE 321 mg/dL (70-100); HEMOGLOBIN A1c% 12.8 % (4.27-6.07)
[2021-06-26 14:45] LABS: THYROID STIMULATING HORMONE 2.31 uIU/mL (0.34-5.60)
[2021-06-26 15:00] LABS: CREATININE,URINE 41.8 mg/dL; MICROALBUM/CREATININE RATIO,UR 1942.6 ug/mg (<30.0); MICROALBUMIN,URINE 81.2 mg/dL (0-300.0)
== END 2021-06-26 11:08 | disposition home or self-care (01) ==
LOC: LAB.N 11:07
PROVIDERS: ATTEND Internal Medicine
DX: I10 Essential (primary) hypertension (principal); E11.42 Type 2 diabetes mellitus with diabetic polyneuropathy; Z12.5 Encounter for screening for malignant neoplasm of prostate
CPT/HCPCS: 36415; 80053; 80061; 82043; 82570; 83036; 84443; 85025; G0103; 83721; 84153

== ENCOUNTER 2021-10-18 13:28 | Outpatient (CLI) | payer MEDICARE | END 2021-10-18 13:29 | disposition home or self-care (01) | LOC: LAB.N 13:28 | PROVIDERS: ATTEND Internal Medicine | DX: Z53.9 Procedure and treatment not carried out, unspecified reason (principal) | CPT/HCPCS: 36415; 80053; 80061; 82043; 82570; 83036; 83721 ==

== ENCOUNTER 2022-02-04 19:43 | Emergency (ER) | payer MEDICARE ==
[2022-02-04 19:50] VITALS: BP 192/87
[2022-02-04] MEDS ORDERED: TETANUS/DIPHTHERIA/PERTUSSIS 0.5 ML SYRINGE IM ONE (20:15)
--- NOTE | 2022-02-04 20:18 | ED Physician Documentation ---
History of Present Illness - Stated complaint Stated Complaint: BILAT FOOT SWELLING - Chief complaint Chief Complaint: Ext Problem - History obtained from History obtained from: Patient - Additonal information Additional information: 62yM with pmh dm2, s/p L first toe amputation, smoker, p/w BL foot and ankle swelling gradual onset over the past week. denies pain, redness, SOA, CP, cough fever. does have small laceration of sole of foot in partial stage of healing. denies orthopnea Review of Systems Constitutional: denies: Fever Cardiac: denies: Chest pain / pressure Respiratory: denies: Dyspnea, Cough Musculoskeletal: reports: Extremity swelling. denies: Extremity pain PD PAST MEDICAL HISTORY - Past Medical History Cardiovascular: High cholesterol, Peripheral Vascular Disease Respiratory: None Neuro: None Endocrine/Autoimmune: Type 2 diabetes HEENT: None - Past Surgical History Past Surgical History: Yes General: Cholecystectomy - Present Medications Home Medications: Ambulatory Orders Medication Instructions Recorded Confirmed Insulin Glargine [Lantus] 30 units SUBQ DAILY 09/13/13 03/31/20 metFORMIN [Glucophage] 500 mg PO BIDWM #60 tablet 08/03/18 03/31/20 Atorvastatin [Lipitor] 03/31/20 Clopidogrel [Plavix] 75 mg PO DAILY 03/31/20 03/31/20 Insulin Aspart [NovoLOG] 5 unit 03/31/20 clindamycin HCL [Clindamycin HCl] 300 mg PO QID #20 capsule 03/31/20 - Allergies Allergies/Adverse Reactions: Allergies Allergy/AdvReac Type Severity Reaction Status Date / Time Penicillins Allergy Rash Verified 02/04/22 19:50 - Social History Does the pt smoke?: Yes Smoking Status: Current every day smoker Does the pt drink ETOH?: No Does the pt have substance abuse?: No - Immunizations Immunizations are current?: No - POLST Patient has POLST: No PD ED PE NORMAL - Vitals Vital signs reviewed: Yes - General General: Alert and oriented X 3, No acute distress, Well developed/nourished - HEENT HEENT: Atraumatic, PERRL, EOMI, Moist mucous membranes, Pharynx benign - Neck Neck: Supple, no meningeal sign - Cardiac Cardiac: RRR - Respiratory Respiratory: No respiratory distress, Clear bilaterally - Abdomen Abdomen: Non tender, Non distended - Derm Derm: Normal color, Warm and dry - Extremities Extremities: Other (mild symmetric BL LE edema to feet and ankles. 2+ DP pulses. no discoloration. 1cm lac to L heel, healing well) - Neuro Neuro: No motor deficit, No sensory deficit Results - Vitals Vitals: Vital Signs - 24 hr 02/04/22 19:48 Temperature 36.7 C Heart Rate 57 L Respiratory 16 Rate Blood Pressure 192/87 H O2 Saturation 99 Oxygen O2 Source Room air PD MEDICAL DECISION MAKING - ED course ED course: 62yM presented with BL foot and ankle swelling, likely due to venous insufficiency. low suspicion dvt at this time given no calf pain, swelling, no prior hx clots. discussed symptom care. return precautions given. plan to f/u w rolando Juarez. Departure - Departure Disposition: 01 Home, Self Care Clinical Impression: Ankle swelling Condition: Good Instructions: Chronic Venous Insufficiency Comments: You were seen in the ED for evaluation of foot, ankle, and leg swelling. This is likely caused by issues with blood flow of the veins in your legs. Wear compression stockings and make sure you prop your feet up as often as possible. Please keep your appointment with Dr. Juarez for Mar 06 and return to the ED if you have new or worsening symptoms or other concerns.
== END 2022-02-04 20:30 | disposition home or self-care (01) ==
LOC: ED 19:43
DX: F17.200 Nicotine dependence, unspecified, uncomplicated (principal); Z89.412 Acquired absence of left great toe; E11.9 Type 2 diabetes mellitus without complications; Z79.4 Long term (current) use of insulin; R22.43 Localized swelling, mass and lump, lower limb, bilateral; Z23 Encounter for immunization; Z71.85 Encounter for immunization safety counseling
CPT/HCPCS: 90471; 99282

== ENCOUNTER 2022-02-11 12:29 | Outpatient (CLI) | payer MEDICARE ==
[2022-02-11 17:43] LABS: BASOPHILS # (AUTO) 0.1 10^3/uL (0.0-0.1); EOSINOPHILS # (AUTO) 0.4 10^3/uL (0.0-0.7); EOSINOPHILS % (AUTO) 3.9 %; HCT - HEMATOCRIT 37.2 % (42.0-52.0); HGB - HEMOGLOBIN 11.7 g/dL (14.0-18.0); LYMPHOCYTES # (AUTO) 1.9 10^3/uL (1.5-3.5); LYMPHOCYTES % (AUTO) 21.5 %; MEAN CORPUSCULAR HEMOGLOBIN 30.6 pg (27.0-31.0); MEAN CORPUSCULAR HGB CONC 31.5 g/dL (32.0-36.0); MEAN CORPUSCULAR VOLUME 97.4 fL (80.0-94.0); MEAN PLATELET VOLUME 10.3 fL (7.4-11.4); MONOCYTES % (AUTO) 11.6 %; NEUTROPHILS # (AUTO) 5.5 10^3/uL (1.5-6.6); NEUTROPHILS % (AUTO) 61.8 %; PLT - PLATELET COUNT 271 10^3/uL (130-450); RED BLOOD COUNT 3.82 10^6/uL (4.70-6.10); RED CELL DISTRIBUTION WIDTH 12.8 % (12.0-15.0)
[2022-02-11 18:03] LABS: ALBUMIN 2.8 g/dL (3.2-5.5); ALBUMIN/GLOBULIN RATIO 0.8 (1.0-2.2); BILIRUBIN,TOTAL 0.5 mg/dL (0.2-1.0); CALCIUM 8.7 mg/dL (8.5-10.3); CREATININE 1.2 mg/dL (0.6-1.2); POTASSIUM 4.2 mmol/L (3.5-5.0); TOTAL PROTEIN 6.3 g/dL (6.7-8.2)
[2022-02-11 20:34] LABS: ESTIMATED AVERAGE GLUCOSE 183 mg/dL (70-100)
== END 2022-02-11 12:30 | disposition home or self-care (01) ==
LOC: LAB.N 12:29
PROVIDERS: ATTEND Nurse Practitioner
DX: E11.42 Type 2 diabetes mellitus with diabetic polyneuropathy (principal); S61.402A Unspecified open wound of left hand, initial encounter
CPT/HCPCS: 36415; 80053; 83036; 85025

== ENCOUNTER 2022-03-08 06:54 | Emergency (ER) | payer MEDICARE ==
[2022-03-08] MEDS ORDERED: SODIUM CHLORIDE 0.9% 1,000 ML IV STA (07:17)
[2022-03-08 07:24] LABS: BASOPHILS # (AUTO) 0.1 10^3/uL (0.0-0.1); BASOPHILS % (AUTO) 0.6 %; EOSINOPHILS # (AUTO) 0.1 10^3/uL (0.0-0.7); EOSINOPHILS % (AUTO) 0.6 %; HCT - HEMATOCRIT 32.5 % (42.0-52.0); HGB - HEMOGLOBIN 10.2 g/dL (14.0-18.0); LYMPHOCYTES # (AUTO) 1.4 10^3/uL (1.5-3.5); LYMPHOCYTES % (AUTO) 12.5 %; MEAN CORPUSCULAR HEMOGLOBIN 30.3 pg (27.0-31.0); MEAN CORPUSCULAR HGB CONC 31.4 g/dL (32.0-36.0); MEAN CORPUSCULAR VOLUME 96.4 fL (80.0-94.0); MEAN PLATELET VOLUME 9.6 fL (7.4-11.4); MONOCYTES # (AUTO) 0.8 10^3/uL (0.0-1.0); MONOCYTES % (AUTO) 6.8 %; NEUTROPHILS % (AUTO) 79.1 %; PLT - PLATELET COUNT 289 10^3/uL (130-450); RED BLOOD COUNT 3.37 10^6/uL (4.70-6.10); RED CELL DISTRIBUTION WIDTH 12.9 % (12.0-15.0); WHITE BLOOD COUNT 11.4 x10^3/uL (4.8-10.8)
[2022-03-08 07:32] LABS: VBG BASE EXCESS -4.4 mmol/L (-2 - +2); VBG OXYGEN SATURATION 86.9 % (60-80); VBG PCO2 34.3 mmHg (41-51); VBG PH 7.383 (7.31-7.41)
[2022-03-08 07:32] LABS: ALBUMIN 2.8 g/dL (3.2-5.5); ALBUMIN/GLOBULIN RATIO 0.8 (1.0-2.2); ALKALINE PHOSPHATASE 59 IU/L (42-121); ALT ALANINE AMINOTRANSFERASE 21 IU/L (10-60); AST ASPARTATE AMINOTRANSFERASE 23 IU/L (10-42); BILIRUBIN,TOTAL 0.8 mg/dL (0.2-1.0); BUN - BLOOD UREA NITROGEN 29 mg/dL (6-20); CALCIUM 8.4 mg/dL (8.5-10.3); CARBON DIOXIDE - CO2 21 mmol/L (21-32); CHLORIDE 110 mmol/L (101-111); CREATININE 1.2 mg/dL (0.6-1.2); GFR - MDRD 62 (>89); GLUCOSE 176 mg/dL (70-100); LIPASE 22 U/L (22-51); POTASSIUM 3.9 mmol/L (3.5-5.0); SODIUM 141 mmol/L (135-145); TOTAL PROTEIN 6.5 g/dL (6.7-8.2)
[2022-03-08 07:36] LABS: KETONES, SERUM (ACETEST) SMALL (NEGATIVE)
[2022-03-08] MEDS ORDERED: iohexoL-300 100 ML VIAL ONE (07:43)
--- NOTE | 2022-03-08 07:57 | ED Physician Documentation ---
PD HPI NVD - Stated complaint Stated Complaint: N/V/COUGH - Chief complaint Chief Complaint: Abd Pain - History obtained from History obtained from: Patient - Additonal information Additional information: Patient is a 62-year-old male with a history of diabetes presenting for evaluation of 2-day history of nausea, vomiting and diarrhea. 2-1/2 days ago he ate at the [employer] and shortly thereafter started having vomiting and diarrhea. Reports multiple episodes of both in the last 2 days. He has been able to tolerate some chicken soup but otherwise is having Continued symptoms. He reports lower abdominal pain. He has not noted blood in his stools or emesis. There was some blood streaking noted in emesis bag upon arrival. He reports feeling dizzy and lightheaded. He has a nonproductive cough. Denies chest pain, difficulty breathing, dysuria. Review of Systems Constitutional: denies: Fever Nose: denies: Congestion Cardiac: denies: Chest pain / pressure Respiratory: reports: Cough. denies: Dyspnea GI: reports: Abdominal Pain, Nausea, Vomiting, Diarrhea. denies: Bloody / black stool : denies: Dysuria Musculoskeletal: denies: Back pain Neurologic: denies: Headache PD PAST MEDICAL HISTORY - Past Medical History Cardiovascular: High cholesterol, Peripheral Vascular Disease Respiratory: None Neuro: None Endocrine/Autoimmune: Type 2 diabetes HEENT: None - Past Surgical History Past Surgical History: Yes General: Cholecystectomy - Present Medications Home Medications: Ambulatory Orders Medication Instructions Recorded Confirmed Insulin Glargine [Lantus] 30 units SUBQ DAILY 09/13/13 03/31/20 metFORMIN [Glucophage] 500 mg PO BIDWM #60 tablet 08/03/18 03/31/20 Atorvastatin [Lipitor] 03/31/20 Clopidogrel [Plavix] 75 mg PO DAILY 03/31/20 03/31/20 Insulin Aspart [NovoLOG] 5 unit 03/31/20 clindamycin HCL [Clindamycin HCl] 300 mg PO QID #20 capsule 03/31/20 Ondansetron Odt [Zofran] 4 mg TL Q6H PRN #10 tablet 03/08/22 Tamsulosin [Flomax] 0.4 mg PO DAILY #14 cap 03/08/22 - Allergies Allergies/Adverse Reactions: Allergies Allergy/AdvReac Type Severity Reaction Status Date / Time Penicillins Allergy Rash Verified 02/04/22 19:50 - Social History Does the pt smoke?: Yes Smoking Status: Current every day smoker Does the pt drink ETOH?: No Does the pt have substance abuse?: No - Immunizations Immunizations are current?: No - POLST Patient has POLST: No PD ED PE NORMAL - General General: Alert and oriented X 3, No acute distress, Well developed/nourished - HEENT HEENT: Atraumatic, Moist mucous membranes, Pharynx benign - Neck Neck: Supple, no meningeal sign - Cardiac Cardiac: RRR, No murmur - Respiratory Respiratory: No respiratory distress, Clear bilaterally - Abdomen Abdomen: Normal bowel sounds, Soft, Non distended, Other (Right lower quadrant tenderness to palpation, well-healed right upper quadrant incision From prior open cholecystectomy) - Derm Derm: Warm and dry - Extremities Extremities: No edema - Neuro Neuro: Alert and oriented X 3, 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, No motor deficit, Normal speech Results - Vitals Vitals: Vital Signs - 24 hr 03/08/22 03/08/22 03/08/22 07:02 07:38 08:08 Temperature 37.1 C Heart Rate 72 66 69 Respiratory 22 16 12 Rate Blood Pressure 193/76 H 188/61 H 187/73 H O2 Saturation 99 98 99 03/08/22 03/08/22 03/08/22 08:30 08:47 09:00 Temperature Heart Rate 69 65 62 Respiratory 16 16 19 Rate Blood Pressure 193/85 H 193/85 H 191/87 H O2 Saturation 96 96 93 03/08/22 03/08/22 03/08/22 09:30 10:00 10:30 Temperature Heart Rate 63 70 62 Respiratory 14 17 18 Rate Blood Pressure 188/78 H 192/81 H 185/77 H O2 Saturation 95 98 96 03/08/22 03/08/22 03/08/22 11:00 11:30 12:00 Temperature Heart Rate 65 65 89 Respiratory 18 16 18 Rate Blood Pressure 178/67 H 186/75 H 177/90 H O2 Saturation 96 97 99 Oxygen O2 Source Room air - EKG (time done) 0719 Rate: Rate (enter#) (64) Rhythm: NSR Intervals: Other (QTC 479) Ischemia: No: ST elevation c/w ischemia Compare to prior EKG: Old EKG unavailable - Labs Labs: Laboratory Tests 03/08/22 03/08/22 03/08/22 07:00 07:00 07:00 WBC 11.4 H RBC 3.37 L Hgb 10.2 L Hct 32.5 L MCV 96.4 H MCH 30.3 MCHC 31.4 L RDW 12.9 Plt Count 289 MPV 9.6 Neut # (Auto) 9.0 H Lymph # (Auto) 1.4 L Fallon # (Auto) 0.8 Eos # (Auto) 0.1 Baso # (Auto) 0.1 Absolute Nucleated RBC 0.00 Nucleated RBC % 0.0 VBG pH VBG pCO2 VBG pO2 VBG HCO3 VBG Total CO2 VBG O2 Saturation VBG Base Excess Sodium 141 Potassium 3.9 Chloride 110 Carbon Dioxide 21 Anion Gap 10.0 BUN 29 H Creatinine 1.2 Estimated GFR (MDRD) 62 L Glucose 176 H Calcium 8.4 L Total Bilirubin 0.8 AST 23 ALT 21 Alkaline Phosphatase 59 B-Natriuretic Peptide 939 H Total Protein 6.5 L Albumin 2.8 L Globulin 3.7 Albumin/Globulin Ratio 0.8 L Lipase 22 Urine Color Urine Clarity Urine pH Ur Specific Sterling Urine Protein Urine Glucose (UA) Urine Ketones Urine Occult Blood Urine Nitrite Urine Bilirubin Urine Urobilinogen Ur Leukocyte Esterase Urine RBC Urine WBC Ur Squamous Epith Cells Urine Bacteria Urine Casts Ur Microscopic Review Urine Culture Comments Nasal Adenovirus (PCR) Nasal B. parapertussis DNA (PCR) Nasal Coronavir 229E PCR Nasal Coronavir HKU1 PCR Nasal Coronavir NL63 PCR Nasal Coronavir OC43 PCR Nasal Enterovir/Rhinovir PCR Nasal Influenza B PCR Nasal Influenza A PCR Nasal Parainfluen 1 PCR Nasal Parainfluen 2 PCR Nasal Parainfluen 3 PCR Nasal Parainfluen 4 PCR Nasal RSV (PCR) Nasal B.pertussis DNA PCR Nasal C.pneumoniae (PCR) Saul Human Metapneumo PCR Nasal M.pneumoniae (PCR) Nasal SARS-CoV-2 (PCR) Serum Ketones SMALL H 03/08/22 03/08/22 03/08/22 07:01 07:27 10:20 WBC RBC Hgb Hct MCV MCH MCHC RDW Plt Count MPV Neut # (Auto) Lymph # (Auto) Fallon # (Auto) Eos # (Auto) Baso # (Auto) Absolute Nucleated RBC Nucleated RBC % VBG pH 7.383 VBG pCO2 34.3 L VBG pO2 53.0 H VBG HCO3 20.0 L VBG Total CO2 21.0 L VBG O2 Saturation 86.9 H VBG Base Excess -4.4 L Sodium Potassium Chloride Carbon Dioxide Anion Gap BUN Creatinine Estimated GFR (MDRD) Glucose Calcium Total Bilirubin AST ALT Alkaline Phosphatase B-Natriuretic Peptide Total Protein Albumin Globulin Albumin/Globulin Ratio Lipase Urine Color YELLOW Urine Clarity CLEAR Urine pH 6.0 Ur Specific Sterling 1.025 Urine Protein >=300 H Urine Glucose (UA) 100 H Urine Ketones NEGATIVE Urine Occult Blood LARGE H Urine Nitrite NEGATIVE Urine Bilirubin NEGATIVE Urine Urobilinogen 0.2 (NORMAL) Ur Leukocyte Esterase NEGATIVE Urine RBC 6-10 H Urine WBC 4-5 Ur Squamous Epith Cells RARE Squamous Urine Bacteria Few Urine Casts 0-2 Granular Casts Ur Microscopic Review INDICATED Urine Culture Comments NOT INDICATED Nasal Adenovirus (PCR) NOT DETECTED Nasal B. parapertussis DNA (PCR) NOT DETECTED Nasal Coronavir 229E PCR NOT DETECTED Nasal Coronavir HKU1 PCR NOT DETECTED Nasal Coronavir NL63 PCR NOT DETECTED Nasal Coronavir OC43 PCR NOT DETECTED Nasal Enterovir/Rhinovir PCR NOT DETECTED Nasal Influenza B PCR NOT DETECTED Nasal Influenza A PCR NOT DETECTED Nasal Parainfluen 1 PCR NOT DETECTED Nasal Parainfluen 2 PCR NOT DETECTED Nasal Parainfluen 3 PCR NOT DETECTED Nasal Parainfluen 4 PCR NOT DETECTED Nasal RSV (PCR) NOT DETECTED Nasal B.pertussis DNA PCR NOT DETECTED Nasal C.pneumoniae (PCR) NOT DETECTED Saul Human Metapneumo PCR NOT DETECTED Nasal M.pneumoniae (PCR) NOT DETECTED Nasal SARS-CoV-2 (PCR) NOT DETECTED Serum Ketones PD MEDICAL DECISION MAKING - ED course Complexity details: reviewed results, re-evaluated patient, d/w patient ED course: Patient presenting for evaluation of nausea, vomiting and diarrhea for the past several days.His vital signs appear stable. His abdominal exam has mild lower abdominal tenderness. Labs reviewed. Patient does not appear to be in DKA. He does have mild anemia. This was noted on labs also 1 month ago. Patient reports his stools have been brown and denies melena or hematochezia. Defers rectal exam.CT scan without acute findings. Patient was not able to urinate on his own. The patient have a distended bladder seen on CT. A Osuna catheter was placed without any difficulty. His urinalysis is negative for signs of infection.His x-ray demonstrates pleural effusions and his BNP is slightly elevated. However he does not have any current respiratory symptoms and his oxygen levels are normal.He was seen at [facility] on February 13 and given a 4-day course of Lasix. He has not followed up with his PCP since then. He reports the swelling in his legs had improved after the Lasix. I do not think he needs further dosing here today but I did advise patient he needs close follow-up with his primary care doctor to discuss several important Issues. Patient is tolerating p.o. and comfortable plan for discharge.He is advised on concerning symptoms to return for. Departure - Departure Disposition: Home, Self Care Clinical Impression: Nausea & vomiting, Urinary retention, Anemia, Pleural effusion Condition: Stable Instructions: ED Anemia Type Not Specified, ED Diet Vomiting Diarrhea, ED Retention Urinary Male Prescriptions: Tamsulosin [Flomax] 0.4 mg PO DAILY #14 cap Ondansetron Odt [Zofran] 4 mg TL Q6H PRN #10 tablet PRN Reason: Nausea / Vomiting Comments: Please call your doctor for close follow-up in the next week. You have a catheter in place as you are not able to urinate on your own. This should stay in for the next week[place] [id number] which will help with your nausea as well as with the retention. At this time I do not see signs of a urinary tract infection. If you have any trouble with your catheter please return to the ER. During a recent visit to the [facility] you were found to have congestive heart failure. You may need to be on a water pill long-term recommend close follow-up with your doctor before starting this.Your recent labs from today and last month show new anemia. You should also have this evaluated. If you notice any dark coloring to your stools Please return to the ER. Discharge Date/Time: 03/08/22 12:06
[2022-03-08] MEDS ORDERED: iohexoL-300 100 ML VIAL IVP ONE (08:00)
--- NOTE | 2022-03-08 08:14 | XRAY Report ---
PROCEDURE: Chest 1 View X-Ray INDICATIONS: cough TECHNIQUE: One view of the chest was acquired. COMPARISON: None. FINDINGS: Surgical changes and devices: None. Lungs and pleura: No pleural effusions or pneumothorax. Diffuse interstitial infiltrates suggesting either pulmonary edema or viral pneumonitis. Mediastinum: Mediastinal contours appear normal. Heart size is normal. Bones and chest wall: No suspicious bony lesions. Overlying soft tissues appear unremarkable. IMPRESSION: Pulmonary edema versus viral pneumonitis. Suggest clinical correlation. Reviewed by: Zack Joya MD on 03/08/2022 8:12 AM PST Approved by: Zack Joya MD on 03/08/2022 8:12 AM PST Station ID: [id number]
[2022-03-08 08:30] LABS: B. PARAPERTUSSIS- RESP PCR PAN NOT DETECTED; B. PERTUSSIS- RESP PCR PANEL NOT DETECTED; C. PNEUMONIAE- RESP PCR PANEL NOT DETECTED; CORONAVIRUS 229E-RESP PCR NOT DETECTED; CORONAVIRUS HKU1-RESP PCR NOT DETECTED; CORONAVIRUS NL63-RESP PCR NOT DETECTED; CORONAVIRUS OC43-RESP PCR NOT DETECTED; HUMAN METAPNEUMOVIRUS NOT DETECTED; INFLUENZA A- RESP PCR PANEL NOT DETECTED; INFLUENZA B - RESP PCR PANEL NOT DETECTED; M. PNEUMONIAE- RESP PCR PANEL NOT DETECTED; PARAINFLUENZA VIRUS 1 NOT DETECTED; PARAINFLUENZA VIRUS 2 NOT DETECTED; PARAINFLUENZA VIRUS 3 NOT DETECTED; PARAINFLUENZA VIRUS 4 NOT DETECTED; RHINOVIRUS/ENTEROVIRUS NOT DETECTED; RSV- RESP PCR PANEL NOT DETECTED; SARS-CoV-2 -RESP PCR PANEL NOT DETECTED
--- NOTE | 2022-03-08 09:38 | CT Report ---
PROCEDURE: ABDOMEN/PELVIS W INDICATIONS: RLQ abd pain/vomiting CONTRAST: 100ml Omnipaque 300 TECHNIQUE: After the administration of intravenous contrast, 5 mm thick sections acquired from the diaphragms to the symphysis. 5 mm thick coronal and sagittal reformats were acquired. For radiation dose reducti on, the following was used: automated exposure control, adjustment of mA and/or kV according to dejon ent size. COMPARISON: CT abdomen pelvis 12/23/2017. FINDINGS: Image quality: Excellent. ABDOMEN: Lung bases: Small bilateral pleural effusions. Heart size is normal. Solid organs: Liver and spleen are normal in size and enhancement. Gallbladder is absent. Biliary system is non dilated. Pancreas enhances normally. Right adrenal nodule measuring 1 cm, (06/16), unch anged since 2018. This most likely represents a small benign adrenal adenoma. Kidneys demonstrate nor mal size and enhancement, without hydronephrosis. Peritoneum and bowel: Bowel loops demonstrate normal wall thickness and caliber. Normal appendix. No free fluid or air. Nodes and vessels: No retroperitoneal or mesenteric adenopathy by size criteria. Aorta and inferior vena cava are normal in size. Moderate calcified plaque. Miscellaneous: Tiny umbilical hernia. Anasarca. PELVIS: Genitourinary: Bladder wall thickness is normal. No distended. Miscellaneous: No inguinal hernias or adenopathy. Bones: No suspicious bony lesions. Left femoral neck bone cyst is unchanged. No vertebral body comp ression fractures. IMPRESSION: 1. Normal appendix. 2. No small bowel obstruction. 3. Anasarca. Small bilateral pleural effusions. 4. Distended urinary bladder. Reviewed by: Layton Spangler MD on 03/08/2022 9:37 AM [facility] Approved by: Layton Spangler MD on 03/08/2022 9:37 AM PST Station ID: [id number]
[2022-03-08 10:33] LABS: BILIRUBIN,URINE NEGATIVE (NEGATIVE); GLUCOSE, URINE (UA) 100 mg/dL (NEGATIVE); KETONES,URINE (UA) NEGATIVE (NEGATIVE); LEUKOCYTE ESTERASE, URINE NEGATIVE (NEGATIVE); NITRITE,URINE NEGATIVE (NEGATIVE); OCCULT BLOOD,URINE LARGE (NEGATIVE); PROTEIN,URINE >=300 mg/dL (NEGATIVE); UROBILINOGEN,URINE 0.2 (NORMAL) E.U./dL (NORMAL)
[2022-03-08 10:35] LABS: CLARITY,URINE CLEAR (CLEAR)
[2022-03-08 10:42] LABS: BACTERIA,URINE Few /HPF (None Seen); CASTS, URINE 0-2 Granular Casts /LPF; SQUAMOUS EPITHELIAL CELL,UR RARE Squamous (<= Few)
[2022-03-08 12:05] VITALS: BP 177/90
== END 2022-03-08 12:06 | disposition home or self-care (01) ==
LOC: EDUNIT# → ED 06:54
DX: R11.2 Nausea with vomiting, unspecified (principal); R33.9 Retention of urine, unspecified; D64.9 Anemia, unspecified; J90 Pleural effusion, not elsewhere classified; I50.9 Heart failure, unspecified; E11.42 Type 2 diabetes mellitus with diabetic polyneuropathy; Z79.4 Long term (current) use of insulin; Z79.84 Long term (current) use of oral hypoglycemic drugs; F17.200 Nicotine dependence, unspecified, uncomplicated; Z20.822 Contact with and (suspected) exposure to COVID-19
CPT/HCPCS: 36415; 71045; 74177; 80053; 81001; 82009; 82803; 83690; 83880; 85025; 87633; 93005; 96360; 99284; Q9967; 81003; 87086

== ENCOUNTER → 2022-03-08 | Outpatient (CLI) | payer MEDICARE | END | disposition critical access hospital (66) | LOC: EMS 06:32 | DX: R11.2 Nausea with vomiting, unspecified (principal); R19.7 Diarrhea, unspecified; R05.9 Cough, unspecified; R63.8 Other symptoms and signs concerning food and fluid intake | CPT/HCPCS: A0425; A0427 ==

== ENCOUNTER 2022-03-11 20:37 | Emergency (ER) | payer MEDICARE ==
[2022-03-11 20:49] VITALS: BP 161/88
--- NOTE | 2022-03-11 20:53 | ED Physician Documentation ---
History of Present Illness - Stated complaint Stated Complaint: MALE - Chief complaint Chief Complaint: General - History obtained from History obtained from: Patient - Additonal information Additional information: He was seen recently for Osuna catheter placement related to urinary issues. He is here because the distal stopcock on the leg bag is leaking and needs a new leg bag. Review of Systems Constitutional: denies: Fever, Chills GI: reports: Reviewed and negative : reports: Reviewed and negative PD PAST MEDICAL HISTORY - Past Medical History Cardiovascular: High cholesterol, Peripheral Vascular Disease Respiratory: None Neuro: None Endocrine/Autoimmune: Type 2 diabetes HEENT: None - Past Surgical History Past Surgical History: Yes General: Cholecystectomy - Present Medications Home Medications: Ambulatory Orders Medication Instructions Recorded Confirmed Insulin Glargine [Lantus] 30 units SUBQ DAILY 09/13/13 03/31/20 metFORMIN [Glucophage] 500 mg PO BIDWM #60 tablet 08/03/18 03/31/20 Atorvastatin [Lipitor] 03/31/20 Clopidogrel [Plavix] 75 mg PO DAILY 03/31/20 03/31/20 Insulin Aspart [NovoLOG] 5 unit 03/31/20 clindamycin HCL [Clindamycin HCl] 300 mg PO QID #20 capsule 03/31/20 Ondansetron Odt [Zofran] 4 mg TL Q6H PRN #10 tablet 03/08/22 Tamsulosin [Flomax] 0.4 mg PO DAILY #14 cap 03/08/22 - Allergies Allergies/Adverse Reactions: Allergies Allergy/AdvReac Type Severity Reaction Status Date / Time Penicillins Allergy Rash Verified 03/11/22 20:50 - Social History Does the pt smoke?: Yes Smoking Status: Current every day smoker Does the pt drink ETOH?: No Does the pt have substance abuse?: No - Immunizations Immunizations are current?: No - POLST Patient has POLST: No PD ED PE NORMAL - Vitals Vital signs reviewed: Yes - General General: Alert and oriented X 3, No acute distress - Male Male : Other (The Osuna catheter is in place with juma urine in the bag, the distal stopcock on the leg bag it does not close all the way and needs to be replaced.) - Derm Derm: Normal color, Warm and dry - Neuro Neuro: Alert and oriented X 3, Normal speech Results - Vitals Vitals: Vital Signs - 24 hr 03/11/22 20:46 Temperature 36.4 C L Heart Rate 73 Respiratory 17 Rate Blood Pressure 161/88 H O2 Saturation 100 Oxygen O2 Source Room air PD Medical Decision Making - ED course ED course: His leg bag was replaced. Departure - Departure Disposition: 01 Home, Self Care Clinical Impression: Osuna catheter problem Condition: Good Record reviewed to determine appropriate education?: Yes Instructions: ED Catheter Care Osuna Comments: Follow-up with urologist as recommended on prior visit. Return for new or worsening symptoms.
== END 2022-03-11 21:05 | disposition home or self-care (01) ==
LOC: ED 20:37
DX: Z46.6 Encounter for fitting and adjustment of urinary device (principal); E11.9 Type 2 diabetes mellitus without complications; Z79.4 Long term (current) use of insulin; F17.200 Nicotine dependence, unspecified, uncomplicated
CPT/HCPCS: 99281; 99282

== ENCOUNTER 2022-04-04 12:57 | Outpatient (CLI) | payer MEDICARE ==
[2022-04-04 17:42] LABS: BASOPHILS # (AUTO) 0.1 10^3/uL (0.0-0.1); BASOPHILS % (AUTO) 0.9 %; EOSINOPHILS # (AUTO) 0.2 10^3/uL (0.0-0.7); EOSINOPHILS % (AUTO) 1.6 %; HCT - HEMATOCRIT 34.7 % (42.0-52.0); HGB - HEMOGLOBIN 10.5 g/dL (14.0-18.0); LYMPHOCYTES # (AUTO) 1.8 10^3/uL (1.5-3.5); LYMPHOCYTES % (AUTO) 18.5 %; MEAN CORPUSCULAR HEMOGLOBIN 29.7 pg (27.0-31.0); MEAN CORPUSCULAR HGB CONC 30.3 g/dL (32.0-36.0); MEAN PLATELET VOLUME 9.4 fL (7.4-11.4); NEUTROPHILS # (AUTO) 6.6 10^3/uL (1.5-6.6); NEUTROPHILS % (AUTO) 68.8 %; PLT - PLATELET COUNT 363 10^3/uL (130-450); RED BLOOD COUNT 3.54 10^6/uL (4.70-6.10); RED CELL DISTRIBUTION WIDTH 13.5 % (12.0-15.0); WHITE BLOOD COUNT 9.6 x10^3/uL (4.8-10.8)
[2022-04-04 18:24] LABS: CREATININE,URINE 51.5 mg/dL; MICROALBUM/CREATININE RATIO,UR 6139.8 ug/mg (<30.0); MICROALBUMIN,URINE 316.2 mg/dL (0-300.0)
[2022-04-04 18:25] LABS: ALBUMIN 2.5 g/dL (3.2-5.5); ALBUMIN/GLOBULIN RATIO 0.6 (1.0-2.2); BILIRUBIN,TOTAL 0.9 mg/dL (0.2-1.0); CALCIUM 8.5 mg/dL (8.5-10.3); CREATININE 1.3 mg/dL (0.6-1.2); POTASSIUM 3.7 mmol/L (3.5-5.0); TOTAL PROTEIN 6.4 g/dL (6.7-8.2)
[2022-04-04 18:32] LABS: CHOL/HDL RATIO 4.5 (<5.0); CHOLESTEROL 194 mg/dL; HDL CHOLESTEROL 43 mg/dL; LDL CHOLESTEROL,CALCULATED 118 mg/dL; LDL/HDL RATIO 2.7 (<3.6); TRIGLYCERIDES 164 mg/dL; VLDL CHOLESTEROL 33 mg/dL
[2022-04-04 21:01] LABS: ESTIMATED AVERAGE GLUCOSE 148 mg/dL (70-100); HEMOGLOBIN A1c% 6.8 % (4.27-6.07)
== END 2022-04-04 12:58 | disposition home or self-care (01) ==
LOC: LAB.N 12:57
PROVIDERS: ATTEND Internal Medicine
DX: I10 Essential (primary) hypertension (principal); D64.9 Anemia, unspecified; E78.5 Hyperlipidemia, unspecified; E11.42 Type 2 diabetes mellitus with diabetic polyneuropathy
CPT/HCPCS: 36415; 80053; 80061; 82043; 82570; 82728; 83036; 83540; 83721; 84466; 85025

== ENCOUNTER 2022-06-02 15:06 | Outpatient (CLI) | payer MEDICARE ==
[2022-06-02 17:57] LABS: BASOPHILS # (AUTO) 0.1 10^3/uL (0.0-0.1); BASOPHILS % (AUTO) 1.2 %; EOSINOPHILS # (AUTO) 0.3 10^3/uL (0.0-0.7); EOSINOPHILS % (AUTO) 3.8 %; HGB - HEMOGLOBIN 11.7 g/dL (14.0-18.0); LYMPHOCYTES # (AUTO) 1.6 10^3/uL (1.5-3.5); LYMPHOCYTES % (AUTO) 23.1 %; MEAN CORPUSCULAR HEMOGLOBIN 29.7 pg (27.0-31.0); MEAN CORPUSCULAR HGB CONC 32.5 g/dL (32.0-36.0); MEAN CORPUSCULAR VOLUME 91.4 fL (80.0-94.0); MEAN PLATELET VOLUME 10.7 fL (7.4-11.4); MONOCYTES # (AUTO) 0.8 10^3/uL (0.0-1.0); MONOCYTES % (AUTO) 11.3 %; NEUTROPHILS # (AUTO) 4.1 10^3/uL (1.5-6.6); NEUTROPHILS % (AUTO) 60.5 %; PLT - PLATELET COUNT 214 10^3/uL (130-450); RED BLOOD COUNT 3.94 10^6/uL (4.70-6.10); RED CELL DISTRIBUTION WIDTH 13.5 % (12.0-15.0); WHITE BLOOD COUNT 6.8 x10^3/uL (4.8-10.8)
[2022-06-02 18:19] LABS: CALCIUM 8.3 mg/dL (8.5-10.3); CREATININE 1.4 mg/dL (0.6-1.2); POTASSIUM 4.4 mmol/L (3.5-5.0)
[2022-06-02 20:39] LABS: ESTIMATED AVERAGE GLUCOSE 272 mg/dL (70-100); HEMOGLOBIN A1c% 11.1 % (4.27-6.07)
== END 2022-06-02 15:07 | disposition home or self-care (01) ==
LOC: LAB.N 15:06
DX: E11.9 Type 2 diabetes mellitus without complications (principal)
CPT/HCPCS: 36415; 80048; 83036; 85025

== ENCOUNTER 2022-09-12 10:37 | Outpatient (CLI) | payer MEDICARE, MEDICAID ==
[2022-09-12 17:36] LABS: BASOPHILS # (AUTO) 0.1 10^3/uL (0.0-0.1); BASOPHILS % (AUTO) 1.2 %; EOSINOPHILS # (AUTO) 0.2 10^3/uL (0.0-0.7); EOSINOPHILS % (AUTO) 3.5 %; HCT - HEMATOCRIT 33.2 % (42.0-52.0); HGB - HEMOGLOBIN 9.8 g/dL (14.0-18.0); LYMPHOCYTES # (AUTO) 1.2 10^3/uL (1.5-3.5); LYMPHOCYTES % (AUTO) 18.9 %; MEAN CORPUSCULAR HEMOGLOBIN 27.8 pg (27.0-31.0); MEAN CORPUSCULAR HGB CONC 29.5 g/dL (32.0-36.0); MEAN CORPUSCULAR VOLUME 94.3 fL (80.0-94.0); MEAN PLATELET VOLUME 9.8 fL (7.4-11.4); MONOCYTES # (AUTO) 0.9 10^3/uL (0.0-1.0); MONOCYTES % (AUTO) 13.8 %; NEUTROPHILS # (AUTO) 4.1 10^3/uL (1.5-6.6); NEUTROPHILS % (AUTO) 62.4 %; PLT - PLATELET COUNT 293 10^3/uL (130-450); RED BLOOD COUNT 3.52 10^6/uL (4.70-6.10); RED CELL DISTRIBUTION WIDTH 14.9 % (12.0-15.0); WHITE BLOOD COUNT 6.5 x10^3/uL (4.8-10.8)
[2022-09-12 17:54] LABS: ALBUMIN 2.6 g/dL (3.2-5.5); ALBUMIN/GLOBULIN RATIO 0.7 (1.0-2.2); ALKALINE PHOSPHATASE 56 IU/L (42-121); ALT ALANINE AMINOTRANSFERASE 17 IU/L (10-60); AST ASPARTATE AMINOTRANSFERASE 16 IU/L (10-42); BILIRUBIN,TOTAL 0.4 mg/dL (0.2-1.0); BUN - BLOOD UREA NITROGEN 27 mg/dL (6-20); CALCIUM 8.3 mg/dL (8.5-10.3); CARBON DIOXIDE - CO2 24 mmol/L (21-32); CHLORIDE 112 mmol/L (101-111); CHOL/HDL RATIO 2.6 (<5.0); CHOLESTEROL 116 mg/dL; CREATININE 1.7 mg/dL (0.6-1.2); GFR - MDRD 41 (>89); GLUCOSE 123 mg/dL (70-100); HDL CHOLESTEROL 45 mg/dL; LDL CHOLESTEROL,CALCULATED 54 mg/dL; LDL/HDL RATIO 1.2 (<3.6); SODIUM 143 mmol/L (135-145); TOTAL PROTEIN 6.4 g/dL (6.7-8.2); TRIGLYCERIDES 87 mg/dL; VLDL CHOLESTEROL 17 mg/dL
[2022-09-12 18:43] LABS: CREATININE,URINE 55.9 mg/dL; MICROALBUM/CREATININE RATIO,UR 5740.6 ug/mg (<30.0); MICROALBUMIN,URINE 320.9 mg/dL (0-300.0); PROTEIN/CREATININE RATIO,URINE 8.8 (<=0.2)
[2022-09-12 20:27] LABS: ESTIMATED AVERAGE GLUCOSE 171 mg/dL (70-100); HEMOGLOBIN A1c% 7.6 % (4.27-6.07)
== END 2022-09-12 10:38 | disposition home or self-care (01) ==
LOC: LAB.N 10:37
PROVIDERS: ATTEND Internal Medicine
DX: E11.42 Type 2 diabetes mellitus with diabetic polyneuropathy (principal); R80.8 Other proteinuria
CPT/HCPCS: 36415; 80053; 80061; 82043; 82570; 83036; 83721; 84156; 85025

== ENCOUNTER 2022-10-23 20:26 | Emergency (ER) | payer MEDICARE, MEDICAID ==
--- NOTE | 2022-10-23 20:46 | ED Physician Documentation ---
History of Present Illness - Stated complaint Stated Complaint: LEGS SWOLLEN - Chief complaint Chief Complaint: Ext Problem - Additonal information Additional information: 62-year-old male who has a history of hypertension and diabetes presents to the emergency department for evaluation of 6 weeks lower extremity swelling/anasarca. States that the swelling is getting so bad it makes him have difficulty walking. States he saw his primary care doctor for recently had labs done but was not notified of the results. he states he has been told he has kidney problems. He was refered to [facility] in April 2022, but did not make the appointment. Not currently on a diuretic though reports he was briefly when hospitalized at [facility] last year He denies chest pain or shortness of air. No exertional dyspnea. Meds: Lisinopril, metformin, atorvastatin, omeprazole, Lantus 36 units every morning Patient has not been seen in this emergency department since 2021 but in review of labs obtained by outpatient providers I do note that he has had a steady rise in his BUN and creatinine now putting him in the stage of chronic kidney disease stage III. Review of the patient's [facility] records indicates he has a history of severe peripheral arterial disease status post angioplasty of the left popliteal artery in 2019. He does have a history of type 2 diabetes with neuropathy, osteomyelitis, developmental delay and history of hard of hearing. Review of Systems Constitutional: denies: Fever, Chills Ears: reports: Reviewed and negative Cardiac: reports: Pedal edema. denies: Chest pain / pressure, Calf pain Respiratory: reports: Reviewed and negative. denies: Dyspnea GI: denies: Abdominal Pain : reports: Reviewed and negative Skin: reports: Reviewed and negative Musculoskeletal: reports: Reviewed and negative PD PAST MEDICAL HISTORY - Past Medical History Cardiovascular: High cholesterol, Peripheral Vascular Disease Respiratory: None Neuro: None Endocrine/Autoimmune: Type 2 diabetes HEENT: None - Past Surgical History Past Surgical History: Yes General: Cholecystectomy - Present Medications Home Medications: Ambulatory Orders Medication Instructions Recorded Confirmed Insulin Glargine [Lantus] 36 units SUBQ DAILY 09/13/13 10/23/22 metFORMIN [Glucophage] 500 mg PO BIDWM #60 tablet 08/03/18 10/23/22 Lisinopril [Zestril] 20 mg PO DAILY 10/23/22 10/23/22 Omeprazole 40 mg PO DAILY 10/23/22 10/23/22 Rosuvastatin Calcium [Crestor] 40 mg PO DAILY 10/23/22 10/23/22 Furosemide [Lasix] 20 mg PO BID #14 tablet 10/24/22 - Allergies Allergies/Adverse Reactions: Allergies Allergy/AdvReac Type Severity Reaction Status Date / Time Penicillins Allergy Rash Verified 10/23/22 20:30 - Social History Does the pt smoke?: Yes Smoking Status: Current every day smoker Does the pt drink ETOH?: No Does the pt have substance abuse?: No - Immunizations Immunizations are current?: No - POLST Patient has POLST: No PD ED PE NORMAL - General General: Alert and oriented X 3, No acute distress, Well developed/nourished - HEENT HEENT: Ears normal (extreme [place]), Moist mucous membranes, Pharynx benign ( adentulous) - Cardiac Cardiac: RRR, No murmur, Strong equal pulses, Other (2+ anasarca bilateral lower extremities left greater than right) - Respiratory Respiratory: No respiratory distress, Clear bilaterally - Abdomen Abdomen: Normal bowel sounds, Soft, Non tender - Derm Derm: Normal color, Warm and dry, No rash - Extremities Extremities: No deformity, Other (left great toe amputation). No: No edema - Neuro Neuro: Alert and oriented X 3, clinical microbiologist 2-12 intact Eye Opening: Spontaneous Motor: Obeys Commands Verbal: Oriented GCS Score: 15 Results - Vitals Vitals: Vital Signs - 24 hr 10/23/22 10/23/22 10/23/22 20:30 21:10 23:08 Temperature 36.5 C 36.0 C L Heart Rate 67 65 66 Respiratory 16 20 16 Rate Blood Pressure 160/84 H 151/78 H 167/89 H O2 Saturation 99 98 99 10/24/22 10/24/22 02:15 03:38 Temperature 36.8 C Heart Rate 62 65 Respiratory 18 16 Rate Blood Pressure 155/73 H 153/74 H O2 Saturation 99 98 Oxygen O2 Source Room air - EKG (time done) 2052 EKG releavant findings:: EKG personally interpreted by author of this note. Relevant findings are: Rate: Rate (enter#) (65) Rhythm: NSR [place]: Normal Intervals: Normal [place]. No: Prolonged QT Ischemia: Non specific changes Compare to prior EKG: Changed from prior EKG Computer interpretation: Agree with computer - Labs Labs: Laboratory Tests 10/23/22 10/23/22 10/23/22 20:45 20:45 20:45 WBC 6.9 RBC 3.94 L Hgb 10.3 L Hct 35.3 L MCV 89.6 MCH 26.1 L MCHC 29.2 L RDW 15.8 H Plt Count 270 MPV 10.5 Neut # (Auto) 4.4 Lymph # (Auto) 1.4 L Edgar # (Auto) 0.8 Eos # (Auto) 0.2 Baso # (Auto) 0.1 Absolute Nucleated RBC 0.00 Nucleated RBC % 0.0 Sodium 139 Potassium 4.8 H Chloride 112 H Carbon Dioxide 23 Anion Gap 4.0 L BUN 28 H Creatinine 1.6 H Estimated GFR (MDRD) 44 L Glucose 59 L* POC Whole Bld Glucose Calcium 8.7 Total Bilirubin 0.4 AST 47 H ALT 32 Alkaline Phosphatase 72 B-Natriuretic Peptide 3768 H Total Protein 6.6 Albumin 3.2 Globulin 3.4 Albumin/Globulin Ratio 0.9 L Lipase 19 Urine Color Urine Clarity Urine pH Ur Specific [place] Urine Protein Urine Glucose (UA) Urine Ketones Urine Occult Blood Urine Nitrite Urine Bilirubin Urine Urobilinogen Ur Leukocyte Esterase Urine RBC Urine WBC Ur Squamous Epith Cells Urine Bacteria Urine Casts Ur Microscopic Review Urine Culture Comments 10/23/22 10/23/22 10/23/22 21:05 22:31 23:08 WBC RBC Hgb Hct MCV MCH MCHC RDW Plt Count MPV Neut # (Auto) Lymph # (Auto) Edgar # (Auto) Eos # (Auto) Baso # (Auto) Absolute Nucleated RBC Nucleated RBC % Sodium Potassium Chloride Carbon Dioxide Anion Gap BUN Creatinine Estimated GFR (MDRD) Glucose POC Whole Bld Glucose 61 L 172 H Calcium Total Bilirubin AST ALT Alkaline Phosphatase B-Natriuretic Peptide Total Protein Albumin Globulin Albumin/Globulin Ratio Lipase Urine Color YELLOW Urine Clarity CLEAR Urine pH 5.5 Ur Specific [place] 1.020 Urine Protein >=300 H Urine Glucose (UA) NEGATIVE Urine Ketones NEGATIVE Urine Occult Blood MODERATE H Urine Nitrite NEGATIVE Urine Bilirubin NEGATIVE Urine Urobilinogen 0.2 (NORMAL) Ur Leukocyte Esterase NEGATIVE Urine RBC 6-10 H Urine WBC 0-3 Ur Squamous Epith Cells NONE SEEN Urine Bacteria Rare Urine Casts 0-2 Hyaline Casts Ur Microscopic Review INDICATED Urine Culture Comments NOT INDICATED 10/24/22 10/24/22 10/24/22 02:14 02:51 03:32 WBC RBC Hgb Hct MCV MCH MCHC RDW Plt Count MPV Neut # (Auto) Lymph # (Auto) Edgar # (Auto) Eos # (Auto) Baso # (Auto) Absolute Nucleated RBC Nucleated RBC % Sodium Potassium Chloride Carbon Dioxide Anion Gap BUN Creatinine Estimated GFR (MDRD) Glucose POC Whole Bld Glucose 62 L 164 H 131 H Calcium Total Bilirubin AST ALT Alkaline Phosphatase B-Natriuretic Peptide Total Protein Albumin Globulin Albumin/Globulin Ratio Lipase Urine Color Urine Clarity Urine pH Ur Specific [place] Urine Protein Urine Glucose (UA) Urine Ketones Urine Occult Blood Urine Nitrite Urine Bilirubin Urine Urobilinogen Ur Leukocyte Esterase Urine RBC Urine WBC Ur Squamous Epith Cells Urine Bacteria Urine Casts Ur Microscopic Review Urine Culture Comments - Rads (name of study) US DVT Relevant Findings:: Final report received (Negative for bilateral DVT. Mo derately enlarged lymph nodes in the left groin. Some left knee effusion) cxr Relevant Findings:: EMP independent interpretation of test (Mild cardiomegaly. Bilateral pleural effusions. Venous congestion) PD Medical Decision Making - ED course Complexity details: reviewed results, re-evaluated patient, considered differential, d/w patient ED course: 62-year-old male presents to the emergency department via POV for evaluation of 6 weeks anasarca of his bilateral lower extremities. Historically the patient reports that he has been told he has kidney disease and was referred to nephrology though he never followed up. Past medical history is most significant for peripheral arterial disease, type 2 diabetes, hypertension and tobacco dependence. On exam the patient is alert and well-appearing. He has no fevers tachycardia or hypotension. He does have some fairly significant 2+ pitting edema to the bilateral lower extremities. Bilateral lower extremity ultrasound DVT was negative for deep vein thrombosis. A chest x-ray is interpreted by myself revealed bilateral pleural effusions with peripheral vascular congestion consistent with heart failure. Here in the emergency department I obtained a CBC, electrolytes and urinalysis. Per my interpretation he does have a essentially unchanged baseline anemia with a hemoglobin of 10.3. His electrolytes reveal a mildly elevated potassium of 4.8. His BUN today is 28 and creatinine of 1.6. This is essentially unchanged over the last several months. We do note modest hypoglycemia with a blood glucose of 59. The patient reports that he took 36 units of Lantus just prior to arrival. He does have a modestly elevated BNP at 3700. Urinalysis was not consistent with infection. No proteinuria. Patient's EKG is nonischemic. Though the patient's potassium is 4.8 he has no hyperacute T waves concerning for critical hyperkalemia. With the chronic kidney disease, findings of venous congestion on x-ray and an elevated BNP this does raise the concern for CHF and or hepatorenal syndrome. The patient will need to be admitted for further evaluation and management of this. There are no beds at [facility] available overnight. In the interim the patient will be given some modest diuresis with 40 mg of Lasix. He would benefit from an echocardiogram, which is not available until Monday this week. His labs will be rechecked in the morning. We did address the patient's hypoglycemia by giving him orange juice to drink. His blood sugars will need to be monitored closely overnight as he did take Lantus just prior to arrival. Patient will be signed out to my nighttime Dr. Carter colleague to follow-up on any acute overnight events. Repeat labs are pending for the a.m. Departure - Departure Disposition: Home, Self Care Clinical Impression: Hypoglycemia, Anasarca associated with disorder of kidney CKD (chronic kidney disease) stage 3, GFR 30-59 ml/min Qualifiers: Chronic kidney disease stage 3 subtype: unspecified whether 3a or 3b Qualified Code(s): N18.30 - Chronic kidney disease, stage 3 unspecified Congestive heart failure Qualifiers: Heart failure type: unspecified Heart failure chronicity: unspecified Qualified Code(s): I50.9 - Heart failure, unspecified Condition: Good Instructions: ED Edema Legs Bilateral Follow-Up: Codey Juarez MD [Primary Care Provider] - Prescriptions: Furosemide [Lasix] 20 mg PO BID #14 tablet Comments: Tonight's test results show abnormal kidney function as well as fluid retention (which is also evident on your physical exam as leg swelling). There are a few possible causes of the leg swelling at this point, and further tests would likely help determine the cause. While we have recommended admission to the hospital, you are indicating you want to go home instead. I am electronically submitting a prescription for furosemide (a "water pill") to the [facility] in [place]. This should gradually reduce the swelling, but because this medication can also worsen kidney function, I am only prescribing a one week course (most patients need to take this on a long-term basis). Please follow up with your primary care provider as soon as can be arranged. It is also very important to follow through on seeing a torpedoman's mate (kidney specialist). Please return to the ER at any time you want to be reevaluated, particularly if your symptoms worsen. Also note that your blood sugars were borderline low tonight. Please check your blood sugar on a regular basis. Forms: PCP List Discharge Date/Time: 10/24/22 03:52
[2022-10-23 20:51] LABS: BASOPHILS # (AUTO) 0.1 10^3/uL (0.0-0.1); EOSINOPHILS # (AUTO) 0.2 10^3/uL (0.0-0.7); EOSINOPHILS % (AUTO) 2.5 %; HCT - HEMATOCRIT 35.3 % (42.0-52.0); HGB - HEMOGLOBIN 10.3 g/dL (14.0-18.0); LYMPHOCYTES # (AUTO) 1.4 10^3/uL (1.5-3.5); MEAN CORPUSCULAR HEMOGLOBIN 26.1 pg (27.0-31.0); MEAN CORPUSCULAR HGB CONC 29.2 g/dL (32.0-36.0); MEAN CORPUSCULAR VOLUME 89.6 fL (80.0-94.0); MEAN PLATELET VOLUME 10.5 fL (7.4-11.4); MONOCYTES # (AUTO) 0.8 10^3/uL (0.0-1.0); MONOCYTES % (AUTO) 11.8 %; NEUTROPHILS # (AUTO) 4.4 10^3/uL (1.5-6.6); NEUTROPHILS % (AUTO) 63.3 %; PLT - PLATELET COUNT 270 10^3/uL (130-450); RED BLOOD COUNT 3.94 10^6/uL (4.70-6.10); RED CELL DISTRIBUTION WIDTH 15.8 % (12.0-15.0); WHITE BLOOD COUNT 6.9 x10^3/uL (4.8-10.8)
[2022-10-23 21:08] LABS: ALBUMIN 3.2 g/dL (3.2-5.5)
[2022-10-23 21:14] LABS: BILIRUBIN,URINE NEGATIVE (NEGATIVE); GLUCOSE, URINE (UA) NEGATIVE (NEGATIVE); KETONES,URINE (UA) NEGATIVE (NEGATIVE); LEUKOCYTE ESTERASE, URINE NEGATIVE (NEGATIVE); NITRITE,URINE NEGATIVE (NEGATIVE); OCCULT BLOOD,URINE MODERATE (NEGATIVE); PH,URINE 5.5 PH (5.0-7.5); PROTEIN,URINE >=300 mg/dL (NEGATIVE); UROBILINOGEN,URINE 0.2 (NORMAL) E.U./dL (NORMAL)
[2022-10-23 21:14] LABS: ALBUMIN/GLOBULIN RATIO 0.9 (1.0-2.2); BILIRUBIN,TOTAL 0.4 mg/dL (0.2-1.0); CALCIUM 8.7 mg/dL (8.5-10.3); CREATININE 1.6 mg/dL (0.6-1.3); POTASSIUM 4.8 mmol/L (3.5-4.5); TOTAL PROTEIN 6.6 g/dL (6.4-8.9)
[2022-10-23 21:15] LABS: CLARITY,URINE CLEAR (CLEAR)
[2022-10-23] MEDS ORDERED: FUROSEMIDE 40 MG/4 ML VIAL IVP STA (21:24)
[2022-10-23 21:26] LABS: BACTERIA,URINE Rare /HPF (None Seen); CASTS, URINE 0-2 Hyaline Casts /LPF; SQUAMOUS EPITHELIAL CELL,UR NONE SEEN (<= Few); WBC,URINE 0-3 /HPF (0-3)
--- NOTE | 2022-10-23 22:06 | XRAY Report ---
PROCEDURE: Chest 1 View X-Ray INDICATIONS: chest pain TECHNIQUE: One view of the chest was acquired. COMPARISON: 03/08/2022. FINDINGS: Surgical changes and devices: None. Lungs and pleura: There are small bilateral pleural effusions with associated bibasilar opacities, l eft greater than right, consistent with compressive atelectasis or consolidation. No pneumothorax. Mediastinum: Mediastinal contours appear normal. Heart size is normal. Bones and chest wall: No suspicious bony lesions. Overlying soft tissues appear unremarkable. IMPRESSION: 1. Small bilateral pleural effusions with bibasilar opacities, left greater than right, consistent wi th compressive atelectasis or consolidation. Reviewed by: Vasquez Grant MD on 10/23/2022 10:04 PM PDT Approved by: Vasquez Grant MD on 10/23/2022 10:04 PM PDT Station ID: [id number]
[2022-10-23] MEDS ORDERED: DEXTROSE 50% ABBOJECT 25 GM/50 ML SYRINGE IVP STA (22:40)
--- NOTE | 2022-10-23 22:42 | Ultrasound Report ---
PROCEDURE: Duplex Ext Veins Bilateral INDICATIONS: ARIANE Haney TECHNIQUE: Real-time imaging, as well as color and pulse Doppler interrogation, were performed of the deep veins of both legs from the inguinal ligament to the popliteal fossa. COMPARISON: None. FINDINGS: The deep veins are normally compressible, and free of intraluminal thrombus. Color and pu lse Doppler demonstrate normal phasic intravascular flow. There is normal augmentation response to d istal compression maneuver. There are prominent bilateral inguinal lymph nodes measuring up to 1 cm in short axis on the left. Th harshil demonstrate preserved fatty tomás and are likely reactive. IMPRESSION: 1. No evidence of deep venous thrombosis in the right or left lower extremity. Reviewed by: Vasquez Grant MD on 10/23/2022 10:41 PM PDT Approved by: Vasquez Grant MD on 10/23/2022 10:41 PM PDT Station ID: [id number]
[2022-10-24] MEDS ORDERED: DEXTROSE 50% ABBOJECT 25 GM/50 ML SYRINGE IVP STA (02:16)
[2022-10-24 03:43] VITALS: BP 153/74
--- NOTE | 2022-10-24 08:15 | ED Physician Documentation ---
ED Addendum - Addendum Addendum: 10/24/22 08:15 I received signout from CORRY Barrios; please see her note for complete history and physical. In brief, patient presents with chief complaint of bilateral lower extremity swelling, gradual onset but steadily progressing over the past six weeks. Relevant test abnormalities tonight include BNP of 3768, chest x-ray suggestive of pulmonary edema, elevated BUN/creatinine, mild hyperkalemia (4.8). Blood glucose (on ER abdominal panel) 59; not exhibiting signs/symptoms to suggest hypoglycemia and thus this given orange juice and chocolate pudding. At the time of signout, no beds available at [facility] and plan is to hold patient in ED until bed becomes available. After turn-over of care to me, I was informed by ED RN that FSBS was 61, representing inadequate change/improvement from serum testing despite having consumed the OJ and pudding. Although he still does not have signs/symptoms of hypoglycemia, he is diabetic and took his regular insulin earlier tonight. I ordered 1 amp D50 IV and subsequent recheck of FSBS is 172. He was sleeping and in NAD when FSBS rechecked three hours later, with result of 62. He was again given 1 amp D50 IV and provided more orange juice. Repeat FSBS was 169 and subsequently 131. At approximately 3:30 AM, I was told by ED RN that the patient was requesting discharge home. I then discussed with the patient his abnormal test results, reminded him that the best plan would be admission to the hospital when a bed becomes available for further testing and monitoring of response to lasix (given 40mg IV in ED), and ongoing monitoring of his blood sugar. He verbalizes understanding of the abnormalities but wants to go home. He tells me he has no other concerns/symptoms aside from the BLE. He denies dyspnea, chest discomfort, weakness. He has been ambulatory in ED without assistance. He is sitting up on stretcher on my evaluation, calm and cooperative and in NAD. 98% pulse ox on room air. At this time, I feel comfortable with discharging patient home per his request. Return precautions were carefully reviewed and he tells me he will adhere to these recommendations regarding returning to the ER at any time, particularly if his symptoms worsen, or if he develops new/concerning signs/symptoms (such as chest pain, weakness, confusion, fever). I electronically submitted a prescription for 20 mg Lasix twice daily x1 week. I explained to patient that this is a brief course of this medication, intended to gradually reduce the leg swelling. I also explained to him that this can adversely affect his kidney function tests, and this is why I am only prescribing a 1 week course. Furthermore, I explained to him that he needs to contact his primary care provider soon as the office opens in the morning to arrange for next available appointment; also emphasized the need for follow-up with a orthopedic physician assistant, and the patient tells me he will call in the morning to both his primary care provider as well as pursue nephrology follow-up which had been recommended to him by his primary care provider earlier this year.
== END 2022-10-24 03:52 | disposition home or self-care (01) ==
LOC: ED 20:26
DX: I13.0 Hypertensive heart and chronic kidney disease with heart failure and stage 1 through stage 4 chronic kidney disease, or unspecified chronic kidney disease (principal); I50.9 Heart failure, unspecified; E11.649 Type 2 diabetes mellitus with hypoglycemia without coma; E11.22 Type 2 diabetes mellitus with diabetic chronic kidney disease; N18.30 Chronic kidney disease, stage 3 unspecified; Z79.4 Long term (current) use of insulin; I73.9 Peripheral vascular disease, unspecified; F17.200 Nicotine dependence, unspecified, uncomplicated
CPT/HCPCS: 36415; 80053; 81001; 81003; 83690; 83880; 85025; 87086; 93005; 93970; 96374; 96375; 96376; 99284

== ENCOUNTER 2022-11-01 11:15 | Outpatient (CLI) | payer MEDICARE, MEDICAID ==
[2022-11-01 18:30] LABS: CALCIUM 8.5 mg/dL (8.5-10.3); CREATININE 1.7 mg/dL (0.6-1.3); POTASSIUM 4.3 mmol/L (3.5-4.5)
== END 2022-11-01 11:16 | disposition home or self-care (01) ==
LOC: LAB.N 11:15
PROVIDERS: ATTEND Family Medicine
DX: R80.8 Other proteinuria (principal)
CPT/HCPCS: 36415; 80048

== ENCOUNTER 2023-01-25 15:07 | Outpatient (CLI) | payer MEDICARE, MEDICAID | END 2023-01-25 15:08 | disposition home or self-care (01) | LOC: DI 15:07 | PROVIDERS: ATTEND Family Medicine | DX: I50.9 Heart failure, unspecified (principal); I51.7 Cardiomegaly | CPT/HCPCS: 93306 ==

== ENCOUNTER 2023-04-18 19:14 | Outpatient (CLI) | payer MEDICARE, MEDICAID | END 2023-04-18 19:15 | disposition EMS.NT | LOC: EMS 19:14 | DX: E11.649 Type 2 diabetes mellitus with hypoglycemia without coma (principal); Z79.4 Long term (current) use of insulin ==

== ENCOUNTER 2023-04-19 15:34 | Outpatient (CLI) | payer MEDICARE, MEDICAID | END 2023-04-19 23:59 | disposition critical access hospital (66) | LOC: EMS 15:34 | DX: E11.649 Type 2 diabetes mellitus with hypoglycemia without coma (principal); R53.1 Weakness; R53.83 Other fatigue; R63.0 Anorexia; R43.8 Other disturbances of smell and taste; Z79.4 Long term (current) use of insulin; Z79.84 Long term (current) use of oral hypoglycemic drugs | CPT/HCPCS: A0425; A0427 ==

== ENCOUNTER 2023-04-19 15:58 | Emergency (ER) | payer MEDICARE, MEDICAID ==
--- NOTE | 2023-04-19 16:09 | ED Physician Documentation ---
History of Present Illness - Stated complaint Stated Complaint: LOW BLOOD SUGAR - History obtained from History obtained from: Patient - History of Present Illness Timing: Today Pain level max: 0 Pain level now: 0 - Additonal information Additional information: Patient is a 63-year-old male, diabetic who presents to the emergency department low blood sugar. He states he took his Lantus this morning but did not eat or drink today. EMS was called for altered mental status, blood glucose was 30. They gave him D50. Blood glucose increased to 145. They brought him into the emergency department. Patient has no complaints. There was a report of a potential fall, but patient has no injuries, did not strike his head. No fevers. No nausea or vomiting. No abdominal pain. No urinary symptoms. No cough. No congestion. Review of Systems Constitutional: denies: Fever, Chills GI: denies: Vomiting, Diarrhea Skin: denies: Rash Musculoskeletal: denies: Neck pain, Back pain Neurologic: denies: Headache PD PAST MEDICAL HISTORY - Past Medical History Cardiovascular: High cholesterol, Peripheral Vascular Disease Respiratory: None Neuro: None Endocrine/Autoimmune: Type 2 diabetes HEENT: None - Past Surgical History Past Surgical History: Yes General: Cholecystectomy - Present Medications Home Medications: Ambulatory Orders Medication Instructions Recorded Confirmed Insulin Glargine [Lantus] 36 units SUBQ DAILY 09/13/13 10/23/22 metFORMIN [Glucophage] 500 mg PO BIDWM #60 tablet 08/03/18 10/23/22 Lisinopril [Zestril] 20 mg PO DAILY 10/23/22 10/23/22 Omeprazole 40 mg PO DAILY 10/23/22 10/23/22 Rosuvastatin Calcium [Crestor] 40 mg PO DAILY 10/23/22 10/23/22 Furosemide [Lasix] 20 mg PO BID #14 tablet 10/24/22 - Allergies Allergies/Adverse Reactions: Allergies Allergy/AdvReac Type Severity Reaction Status Date / Time Penicillins Allergy Rash Verified 04/19/23 16:08 - Social History Does the pt smoke?: Yes Smoking Status: Current every day smoker Does the pt drink ETOH?: No Does the pt have substance abuse?: No - Immunizations Immunizations are current?: No - POLST Patient has POLST: No PD ED PE NORMAL - Vitals Vital signs reviewed: Yes - General General: Alert and oriented X 3, No acute distress - HEENT HEENT: Moist mucous membranes - Neck Neck: Supple, no meningeal sign - Cardiac Cardiac: RRR - Respiratory Respiratory: No respiratory distress, Clear bilaterally - Abdomen Abdomen: Soft, Non tender, Non distended - Derm Derm: Warm and dry - Extremities Extremities: No edema - Neuro Neuro: Alert and oriented X 3 - Psych Psych: Normal mood, Normal affect Results - Vitals Vitals: Vital Signs - 24 hr 04/19/23 16:05 Temperature 36.4 C L Heart Rate 65 Respiratory 17 Rate Blood Pressure 136/82 H O2 Saturation 97 Oxygen O2 Source Room air - Labs Labs: Laboratory Tests 04/19/23 04/19/23 16:06 17:09 POC Whole Bld Glucose 66 L 118 H PD Medical Decision Making - ED course Complexity details: reviewed results, re-evaluated patient, considered differential, d/w patient ED course: Patient ate a sandwich, 2 containers of apple sauce, drink a soda and ate pu dding. His blood sugar remained elevated after 2 hours. He is not having any symptoms currently. Patient was counseled that if he is going to take his insulin he needs to make sure that he is eating regularly as hypoglycemia is dangerous and could kill him. He is going to go home with friends today who can monitor him. Patient is very well-appearing, nontoxic. Afebrile. Abdomen is soft, nontender nondistended. No vomiting. Eating and drinking without any difficulty here. No indication for laboratory testing at this time. Hypoglycemia secondary to insulin use. Patient counseled regarding signs and symptoms for which I believe and urgent re-evaluation would be necessary. Patient with good understanding of and agreement to plan and is comfortable going home at this time This document was made in part using voice recognition software. While efforts are made to proofread this document, sound alike and grammatical errors may occur. Departure - Departure Disposition: 01 Home, Self Care Clinical Impression: Hypoglycemia Condition: Good Instructions: ED Diabetes Hypoglycemia Insulin React Follow-Up: Codey Juarez MD [Primary Care Provider] - Within 1 week Comments: Make sure you are eating and drinking regularly at home. Do not skip meals. Return if you worsen. Talk to your doctor about a glucometer. Forms: PCP List Discharge Date/Time: 04/19/23 18:55
[2023-04-19 16:17] VITALS: BP 136/82; O2SAT 97
== END 2023-04-19 18:55 | disposition home or self-care (01) ==
LOC: EDUNIT# → ED 15:58
DX: E11.649 Type 2 diabetes mellitus with hypoglycemia without coma (principal); Z79.4 Long term (current) use of insulin; Z79.84 Long term (current) use of oral hypoglycemic drugs; F17.200 Nicotine dependence, unspecified, uncomplicated
CPT/HCPCS: 99282; 99283

== ENCOUNTER 2023-10-10 16:55 | Outpatient (CLI) | payer MEDICARE, MEDICAID | END 2023-10-10 23:59 | disposition EMS.NT | LOC: EMS 16:55 | DX: S80.212A Abrasion, left knee, initial encounter (principal); S80.211A Abrasion, right knee, initial encounter; S00.31XA Abrasion of nose, initial encounter; W18.39XA Other fall on same level, initial encounter ==

== ENCOUNTER 2023-10-20 15:41 | Outpatient (CLI) | payer MEDICARE, MEDICAID | END 2023-10-20 23:59 | disposition critical access hospital (66) | LOC: EMS 15:41 | DX: M25.561 Pain in right knee (principal); S80.211A Abrasion, right knee, initial encounter; W10.9XXA Fall (on) (from) unspecified stairs and steps, initial encounter; Y93.01 Activity, walking, marching and hiking; Y92.009 Unspecified place in unspecified non-institutional (private) residence as the place of occurrence of the external cause | CPT/HCPCS: A0425; A0427 ==

== ENCOUNTER 2023-10-20 16:11 | Emergency (ER) | payer MEDICARE, MEDICAID ==
[2023-10-20 16:29] VITALS: O2SAT 99
--- NOTE | 2023-10-20 16:39 | ED Physician Documentation ---
History of Present Illness - Stated complaint Stated Complaint: GLF/R KNEE PX - Chief complaint Chief Complaint: Trauma Ext - History obtained from History obtained from: Patient, EMS - History of Present Illness Timing: Today Pain level max: 1 Pain level now: 0 - Additonal information Additional information: Patient is a 63-year-old male who presents to the emergency department with a right knee abrasion. He states he was walking up the stairs today when he felt weak and went down onto his right knee. He states he is having mild pain, worse with walking, better with rest. The wound was bandaged by EMS. No head, neck, back pain. No loss of consciousness. No other injuries. Patient is a diabetic with chronic kidney disease, he is unsure what his blood sugar was today. Review of Systems Constitutional: denies: Fever, Chills Throat: denies: Sore throat Cardiac: denies: Chest pain / pressure Respiratory: denies: Dyspnea, Cough GI: denies: Abdominal Pain, Vomiting, Diarrhea Skin: denies: Rash Musculoskeletal: denies: Neck pain, Back pain Neurologic: denies: Headache PD PAST MEDICAL HISTORY - Past Medical History Past Medical History: Yes Cardiovascular: High cholesterol, Peripheral Vascular Disease Respiratory: None Neuro: None Endocrine/Autoimmune: Type 2 diabetes HEENT: None - Past Surgical History Past Surgical History: Yes General: Cholecystectomy - Present Medications Home Medications: Ambulatory Orders Medication Instructions Recorded Confirmed Insulin Glargine [Lantus] 36 units SUBQ DAILY 09/13/13 10/23/22 metFORMIN [Glucophage] 500 mg PO BIDWM #60 tablet 08/03/18 10/23/22 Lisinopril [Zestril] 20 mg PO DAILY 10/23/22 10/23/22 Omeprazole 40 mg PO DAILY 10/23/22 10/23/22 Rosuvastatin Calcium [Crestor] 40 mg PO DAILY 10/23/22 10/23/22 Furosemide [Lasix] 20 mg PO BID #14 tablet 10/24/22 - Allergies Allergies/Adverse Reactions: Allergies Allergy/AdvReac Type Severity Reaction Status Date / Time Penicillins Allergy Rash Verified 10/20/23 16:25 - Social History Does the pt smoke?: Yes Smoking Status: Current every day smoker Does the pt drink ETOH?: No Does the pt have substance abuse?: No - Immunizations Immunizations are current?: No - POLST Patient has POLST: No PD ED PE NORMAL - Vitals Vital signs reviewed: Yes - General General: Alert and oriented X 3, No acute distress - HEENT HEENT: Atraumatic, PERRL, Moist mucous membranes - Neck Neck: Supple, no meningeal sign, No bony TTP - Cardiac Cardiac: RRR - Respiratory Respiratory: No respiratory distress, Clear bilaterally - Abdomen Abdomen: Soft, Non tender, Non distended - Derm Derm: Warm and dry - Extremities Extremities: Other (Abrasion to the right knee. Otherwise normal examination of all 4 extremities. No bony tenderness. Full range of motion of all major joints. Neurovascular intact.) - Neuro Neuro: Alert and oriented X 3 - Psych Psych: Normal mood, Normal affect Results - Vitals Vitals: Vital Signs - 24 hr 10/20/23 10/20/23 16:16 17:22 Temperature 36.8 C Heart Rate 60 78 Respiratory 16 13 Rate Blood Pressure 134/75 H 145/75 H O2 Saturation 99 99 Oxygen O2 Source Room air - Labs Labs: Laboratory Tests 10/20/23 10/20/23 16:46 16:46 WBC 8.1 RBC 3.75 L Hgb 10.4 L Hct 32.6 L MCV 86.9 MCH 27.7 MCHC 31.9 L RDW 16.3 H Plt Count 237 MPV 9.3 Neut # (Auto) 6.2 Lymph # (Auto) 0.7 L [place] # (Auto) 1.1 H Eos # (Auto) 0.0 Baso # (Auto) 0.0 Absolute Nucleated RBC 0.00 Nucleated RBC % 0.0 Sodium 130 L Potassium 3.3 L Chloride 101 Carbon Dioxide 17 L Anion Gap 12.0 BUN 56 H Creatinine 2.6 H Estimated GFR (MDRD) 25 L Glucose 230 H Calcium 8.0 L Total Bilirubin 0.4 AST 20 ALT 14 Alkaline Phosphatase 46 Total Protein 6.0 L Albumin 3.1 L Globulin 2.9 Albumin/Globulin Ratio 1.1 Lipase 67 PD Medical Decision Making - ED course Complexity details: reviewed results, re-evaluated patient, considered differential, d/w patient ED course: 63-year-old male presents after a fall today. Abrasion to the right knee. Ambulating without difficulty. He is found to be hyperglycemic which is chronic for him. He does not want any insulin. He was given IV fluids. No lightheadedness or dizziness. No head injury, no neck or back pain. No focal neurological deficits. Patient is requesting to go home at this time. No indication for x-rays. Patient counseled regarding signs and symptoms for which I believe and urgent re-evaluation would be necessary. Patient with good understanding of and agreement to plan and is comfortable going home at this time This document was made in part using voice recognition software. While efforts are made to proofread this document, sound alike and grammatical errors may occur. Departure - Departure Disposition: 01 Home, Self Care Clinical Impression: Knee abrasion Qualifiers: Encounter type: initial encounter Laterality: right Qualified Code(s): S80.211A - Abrasion, right knee, initial encounter Condition: Good Instructions: ED Abrasion Follow-Up: Codey Juarez MD [Primary Care Provider] - Comments: Please keep your wound clean. Please follow-up with your doctor for further care. Please return if you worsen. Make sure you are keeping track of your blood sugars at home. Forms: PCP List Discharge Date/Time: 10/20/23 18:02
[2023-10-20] MEDS: SODIUM CHLORIDE 0.9% 1,000 ML IV STA (16:42)
[2023-10-20 16:52] LABS: BASOPHILS % (AUTO) 0.5 %; EOSINOPHILS % (AUTO) 0.2 %; HCT - HEMATOCRIT 32.6 % (42.0-52.0); HGB - HEMOGLOBIN 10.4 g/dL (14.0-18.0); LYMPHOCYTES # (AUTO) 0.7 10^3/uL (1.5-3.5); LYMPHOCYTES % (AUTO) 8.9 %; MEAN CORPUSCULAR HEMOGLOBIN 27.7 pg (27.0-31.0); MEAN CORPUSCULAR HGB CONC 31.9 g/dL (32.0-36.0); MEAN CORPUSCULAR VOLUME 86.9 fL (80.0-94.0); MEAN PLATELET VOLUME 9.3 fL (7.4-11.4); MONOCYTES # (AUTO) 1.1 10^3/uL (0.0-1.0); NEUTROPHILS # (AUTO) 6.2 10^3/uL (1.5-6.6); PLT - PLATELET COUNT 237 10^3/uL (130-450); RED BLOOD COUNT 3.75 10^6/uL (4.70-6.10); RED CELL DISTRIBUTION WIDTH 16.3 % (12.0-15.0); WHITE BLOOD COUNT 8.1 x10^3/uL (4.8-10.8)
[2023-10-20 17:09] LABS: ALBUMIN 3.1 g/dL (3.2-5.5); ALBUMIN/GLOBULIN RATIO 1.1 (1.0-2.2); BILIRUBIN,TOTAL 0.4 mg/dL (0.2-1.0); CREATININE 2.6 mg/dL (0.6-1.3); POTASSIUM 3.3 mmol/L (3.5-4.5)
[2023-10-20 17:35] VITALS: BP 145/75
== END 2023-10-20 18:02 | disposition home or self-care (01) ==
LOC: EDUNIT# → ED 16:11
DX: S80.211A Abrasion, right knee, initial encounter (principal); W10.8XXA Fall (on) (from) other stairs and steps, initial encounter; E11.65 Type 2 diabetes mellitus with hyperglycemia; Z79.4 Long term (current) use of insulin; Z79.84 Long term (current) use of oral hypoglycemic drugs; E78.00 Pure hypercholesterolemia, unspecified; F17.290 Nicotine dependence, other tobacco product, uncomplicated
CPT/HCPCS: 36415; 80053; 83690; 85025; 96360; 99283

== ENCOUNTER 2023-10-28 21:44 | Outpatient (CLI) | payer MEDICARE, MEDICAID | END 2023-10-28 21:45 | disposition critical access hospital (66) | LOC: EMS 21:44 | DX: R53.1 Weakness (principal) | CPT/HCPCS: A0425; A0429 ==

== ENCOUNTER 2023-10-28 22:07 | Emergency (ER) | payer MEDICARE, MEDICAID ==
--- NOTE | 2023-10-28 22:25 | ED Physician Documentation ---
PD HPI [facility]OCAL NEURO - Stated complaint Stated Complaint: WEAKNESS - History obtained from History obtained from: Patient, Family (sister), EMS - History of Present Illness Timing - onset: How many days ago (5-6) Timing - duration: Days (5-6) Timing - details: Gradual onset, Still present (has gotten more pronounced the past 2-3 days, with inability to walk due to feeling weakness, dyspnea. Fell several times and has injury to right elbow from earlier today. Denies striking head/chest/abd.) Severity of deficit: Moderate Weakness: Other (generalized). No: Face Numbness: No: Face, Arm, Leg Associated symptoms: Nausea / vomiting (nausea with less appetitie and intake, and also less intake due to inibility getting up and walking to get to kitchen.), Fall. No: Headache, Head injury, Fever Contributing factors: negative: Anticoagulated Baseline status: positive: A&OX3, ambulatory, indep (some ambulation balance problems due to prior toe ampuations, but walks independently.). negative: Dementia Similar symptoms before: Has not had sx before Recently seen: Not recently seen Review of Systems Constitutional: reports: Fatigue. denies: Fever, Chills Ears: reports: Loss of hearing (chronic with hearing aid left ear more functional.) Nose: denies: Rhinorrhea / runny nose, Congestion Throat: denies: Sore throat Cardiac: denies: Chest pain / pressure, Pedal edema Respiratory: reports: Dyspnea, Cough. denies: Wheezing GI: reports: Nausea (for few days). denies: Abdominal Pain, Vomiting, Diarrhea Neurologic: reports: Generalized weakness. denies: Focal weakness, Difficulty speaking, Near syncope PD PAST MEDICAL HISTORY - Past Medical History Cardiovascular: High cholesterol, Peripheral Vascular Disease Respiratory: None Neuro: None Endocrine/Autoimmune: Type 2 diabetes HEENT: None - Past Surgical History Past Surgical History: Yes General: Cholecystectomy - Present Medications Home Medications: Ambulatory Orders Medication Instructions Recorded Confirmed Insulin Glargine [Lantus] 36 units SUBQ DAILY 09/13/13 10/23/22 metFORMIN [Glucophage] 500 mg PO BIDWM #60 tablet 08/03/18 10/23/22 Lisinopril [Zestril] 20 mg PO DAILY 10/23/22 10/23/22 Omeprazole 40 mg PO DAILY 10/23/22 10/23/22 Rosuvastatin Calcium [Crestor] 40 mg PO DAILY 10/23/22 10/23/22 Furosemide [Lasix] 20 mg PO BID #14 tablet 10/24/22 - Allergies Allergies/Adverse Reactions: Allergies Allergy/AdvReac Type Severity Reaction Status Date / Time Penicillins Allergy Rash Verified 10/28/23 22:26 - Social History Does the pt smoke?: Yes Smoking Status: Current every day smoker Does the pt drink ETOH?: No Does the pt have substance abuse?: No - Immunizations Immunizations are current?: No - POLST Patient has POLST: No PD ED PE NORMAL - Vitals Vital signs reviewed: Yes - General General: Alert and oriented X 3, Well developed/nourished - HEENT HEENT: PERRL (right eye mild discharge without swelling.), Other (hard of hearing, with left ear more receptive. ) - Neck Neck: Supple, no meningeal sign, No adenopathy - Cardiac Cardiac: RRR, No murmur - Respiratory Respiratory: No respiratory distress. No: Clear bilaterally (no wheezing. Mild fine crackles just at bases. ) - Abdomen Abdomen: Soft, Non tender - Derm Derm: Normal color, Warm and dry - Extremities Extremities: Other (riught elbow with effusion and tenderness posteriorly. Limited ROM due to pain, mainly held at 90 degree flexed position. Normal sensation in fingers. ) - Neuro Neuro: Alert and oriented X 3, No motor deficit, No sensory deficit Results - Vitals Vitals: Vital Signs - 24 hr 10/28/23 10/29/23 10/29/23 22:23 00:25 02:00 Temperature 36.7 C Heart Rate 78 78 70 Respiratory 20 18 16 Rate Blood Pressure 127/78 129/66 113/80 O2 Saturation 100 99 96 10/29/23 03:59 Temperature 36.2 C L Heart Rate 61 Respiratory 16 Rate Blood Pressure 122/73 O2 Saturation 97 Oxygen O2 Source Room air - EKG (time done) 22:11 EKG releavant findings:: EKG personally interpreted by author of this note. Relevant findings are: Rate: Rate (enter#) (86) Rhythm: NSR [place]: Normal Intervals: Normal [place] QRS: Normal Ischemia: Normal ST segments, Q waves (V1-V3 with nondiagnostic ST elevations/repol changes anteriorly v1-v4. ). No: ST elevation c/w ischemia, ST depression, T wave inversion Compare to prior EKG: Old EKG unavailable - Labs Labs: Laboratory Tests 10/28/23 10/28/23 10/28/23 22:26 22:26 22:26 WBC 12.7 H RBC 4.25 L Hgb 11.8 L Hct 37.0 L MCV 87.1 MCH 27.8 MCHC 31.9 L RDW 16.1 H Plt Count 205 MPV 9.6 Neut # (Auto) 10.2 H Lymph # (Auto) 0.7 L [place] # (Auto) 1.7 H Eos # (Auto) 0.0 Baso # (Auto) 0.0 Absolute Nucleated RBC 0.00 Total Counted WATER PURIFICATION CHEMIST Band Neuts % (Manual) WATER PURIFICATION CHEMIST Abnorm Lymph % (Manual) WATER PURIFICATION CHEMIST Nucleated RBC % 0.0 Neutrophils # (Manual) WATER PURIFICATION CHEMIST Lymphocytes # (Manual) WATER PURIFICATION CHEMIST Monocytes # (Manual) WATER PURIFICATION CHEMIST Eosinophils # (Manual) WATER PURIFICATION CHEMIST Basophils # (Manual) WATER PURIFICATION CHEMIST Differential Comment MANUAL=AUTO DIFF Platelet Estimate NORMAL (130-450,000) Platelet Morphology NORMAL APPEARANCE Sodium 135 Potassium 3.2 L Chloride 102 Carbon Dioxide 21 Anion Gap 12.0 BUN 51 H Creatinine 3.0 H Estimated GFR (MDRD) 21 L Glucose 198 H Calcium 9.0 Phosphorus 3.8 Magnesium 2.3 Total Bilirubin 0.6 AST 15 ALT 17 Alkaline Phosphatase 47 Troponin I High Sens 686.6 H* B-Natriuretic Peptide Total Protein 6.1 L Albumin 3.4 Globulin 2.7 Albumin/Globulin Ratio 1.3 Lipase < 10 L Vitamin B12 662 TSH 1.81 Urine Color Urine Clarity Urine pH Ur Specific [place] Urine Protein Urine Glucose (UA) Urine Ketones Urine Occult Blood Urine Nitrite Urine Bilirubin Urine Urobilinogen Ur Leukocyte Esterase Urine RBC Urine WBC Ur Squamous Epith Cells Urine Bacteria Urine Casts Urine Yeast Ur Microscopic Review Urine Culture Comments Nasal Adenovirus (PCR) Nasal B. parapertussis DNA (PCR) Nasal Coronavir 229E PCR Nasal Coronavir HKU1 PCR Nasal Coronavir NL63 PCR Nasal Coronavir OC43 PCR Nasal Enterovir/Rhinovir PCR Nasal Influenza B PCR Nasal Influenza A PCR Nasal Parainfluen 1 PCR Nasal Parainfluen 2 PCR Nasal Parainfluen 3 PCR Nasal Parainfluen 4 PCR Nasal RSV (PCR) Nasal B.pertussis DNA PCR Nasal C.pneumoniae (PCR) Saul Human Metapneumo PCR Nasal M.pneumoniae (PCR) Nasal SARS-CoV-2 (PCR) Urine Opiates Screen Ur Buprenorphine Scrn Ur Oxycodone Screen Urine Methadone Screen Ur Barbiturates Screen Ur Tricyclics Screen Ur Phencyclidine Scrn Ur Amphetamine Screen U Methamphetamines Scrn U Benzodiazepines Scrn Urine Cocaine Screen U Cannabinoids Screen Ur Drug Screen Comment Serum Ketones NEGATIVE 10/28/23 10/28/23 10/28/23 22:26 23:10 23:55 WBC RBC Hgb Hct MCV MCH MCHC RDW Plt Count MPV Neut # (Auto) Lymph # (Auto) [place] # (Auto) Eos # (Auto) Baso # (Auto) Absolute Nucleated RBC Total Counted Band Neuts % (Manual) Abnorm Lymph % (Manual) Nucleated RBC % Neutrophils # (Manual) Lymphocytes # (Manual) Monocytes # (Manual) Eosinophils # (Manual) Basophils # (Manual) Differential Comment Platelet Estimate Platelet Morphology Sodium Potassium Chloride Carbon Dioxide Anion Gap BUN Creatinine Estimated GFR (MDRD) Glucose Calcium Phosphorus Magnesium Total Bilirubin AST ALT Alkaline Phosphatase Troponin I High Sens 663.0 H* B-Natriuretic Peptide 4364 H Total Protein Albumin Globulin Albumin/Globulin Ratio Lipase Vitamin B12 TSH Urine Color Urine Clarity Urine pH Ur Specific [place] Urine Protein Urine Glucose (UA) Urine Ketones Urine Occult Blood Urine Nitrite Urine Bilirubin Urine Urobilinogen Ur Leukocyte Esterase Urine RBC Urine WBC Ur Squamous Epith Cells Urine Bacteria Urine Casts Urine Yeast Ur Microscopic Review Urine Culture Comments Nasal Adenovirus (PCR) NOT DETECTED Nasal B. parapertussis DNA (PCR) NOT DETECTED Nasal Coronavir 229E PCR NOT DETECTED Nasal Coronavir HKU1 PCR NOT DETECTED Nasal Coronavir NL63 PCR NOT DETECTED Nasal Coronavir OC43 PCR NOT DETECTED Nasal Enterovir/Rhinovir PCR NOT DETECTED Nasal Influenza B PCR NOT DETECTED Nasal Influenza A PCR NOT DETECTED Nasal Parainfluen 1 PCR NOT DETECTED Nasal Parainfluen 2 PCR NOT DETECTED Nasal Parainfluen 3 PCR NOT DETECTED Nasal Parainfluen 4 PCR NOT DETECTED Nasal RSV (PCR) NOT DETECTED Nasal B.pertussis DNA PCR NOT DETECTED Nasal C.pneumoniae (PCR) NOT DETECTED [place] Human Metapneumo PCR NOT DETECTED Nasal M.pneumoniae (PCR) NOT DETECTED Nasal SARS-CoV-2 (PCR) NOT DETECTED Urine Opiates Screen Ur Buprenorphine Scrn Ur Oxycodone Screen Urine Methadone Screen Ur Barbiturates Screen Ur Tricyclics Screen Ur Phencyclidine Scrn Ur Amphetamine Screen U Methamphetamines Scrn U Benzodiazepines Scrn Urine Cocaine Screen U Cannabinoids Screen Ur Drug Screen Comment Serum Ketones 10/29/23 01:35 WBC RBC Hgb Hct MCV MCH MCHC RDW Plt Count MPV Neut # (Auto) Lymph # (Auto) [place] # (Auto) Eos # (Auto) Baso # (Auto) Absolute Nucleated RBC Total Counted Band Neuts % (Manual) Abnorm Lymph % (Manual) Nucleated RBC % Neutrophils # (Manual) Lymphocytes # (Manual) Monocytes # (Manual) Eosinophils # (Manual) Basophils # (Manual) Differential Comment Platelet Estimate Platelet Morphology Sodium Potassium Chloride Carbon Dioxide Anion Gap BUN Creatinine Estimated GFR (MDRD) Glucose Calcium Phosphorus Magnesium Total Bilirubin AST ALT Alkaline Phosphatase Troponin I High Sens B-Natriuretic Peptide Total Protein Albumin Globulin Albumin/Globulin Ratio Lipase Vitamin B12 TSH Urine Color YELLOW Urine Clarity CLEAR Urine pH 5.5 Ur Specific [place] 1.020 Urine Protein >=300 H Urine Glucose (UA) >=1000 H Urine Ketones NEGATIVE Urine Occult Blood MODERATE H Urine Nitrite NEGATIVE Urine Bilirubin NEGATIVE Urine Urobilinogen 0.2 (NORMAL) Ur Leukocyte Esterase NEGATIVE Urine RBC 6-10 H Urine WBC 0-3 Ur Squamous Epith Cells RARE Squamous Urine Bacteria None Seen Urine Casts 3-5 Course Granular Urine Yeast PRESENT Ur Microscopic Review INDICATED Urine Culture Comments NOT INDICATED Nasal Adenovirus (PCR) Nasal B. parapertussis DNA (PCR) Nasal Coronavir 229E PCR Nasal Coronavir HKU1 PCR Nasal Coronavir NL63 PCR Nasal Coronavir OC43 PCR Nasal Enterovir/Rhinovir PCR Nasal Influenza B PCR Nasal Influenza A PCR Nasal Parainfluen 1 PCR Nasal Parainfluen 2 PCR Nasal Parainfluen 3 PCR Nasal Parainfluen 4 PCR Nasal RSV (PCR) Nasal B.pertussis DNA PCR Nasal C.pneumoniae (PCR) [place] Human Metapneumo PCR Nasal M.pneumoniae (PCR) Nasal SARS-CoV-2 (PCR) Urine Opiates Screen NEGATIVE Ur Buprenorphine Scrn NEGATIVE Ur Oxycodone Screen NEGATIVE Urine Methadone Screen NEGATIVE Ur Barbiturates Screen NEGATIVE Ur Tricyclics Screen NEGATIVE Ur Phencyclidine Scrn NEGATIVE Ur Amphetamine Screen NEGATIVE U Methamphetamines Scrn NEGATIVE U Benzodiazepines Scrn NEGATIVE Urine Cocaine Screen NEGATIVE U Cannabinoids Screen NEGATIVE Ur Drug Screen Comment MUDS CUTOFF Serum Ketones - Rads (name of study) chest xray Relevant Findings:: Prelim report reviewed, EMP independent interpretation of t est (no signs of failure, infiltrates. Normal heart size. ) head CT Relevant Findings:: Prelim report reviewed, EMP independent interpretation of test (no ICH. Chronic microvascular changes. ) right elbow Relevant Findings:: Prelim report reviewed, EMP independent interpretation of test (supracondylar fracture with displacement. ) Procedures - Splint (location) - Minor right elbow Splint applied by: Nurse Type of splint: Fiberglass, Sugar tong Other: Patient tolerated well, No complications, Neurovascular intact, Sling provided PD Medical Decision Making - ED course Complexity details: reviewed results, considered differential, d/w patient, d/w family (sister), d/w surgery consultant (I talked with cardiology and orthopedics at [facility] and the limiting factor was actually orthopedics for the complicated elbow fracture. Similar with [facility] in [place]. The orthopedist reviewed the elbow films and felt it was more complicated. and [facility] did not have beds. ) ED course: The patient is typically ambulatory and does his own ADLs. He does have a history of coronary disease and diabetes. He and his sister noted him to have generalized weakness onset about a week ago. No fevers or vomiting or chest pain. He was having dyspnea with activity. He has noticed a progressive generalized weakness and was exacerbated enough to the level of him falling several times today. He did fall onto his elbow and has injury and swelling there. Denies injury to his head or chest. Symptoms in the past week have been fatigue and general weakness with less appetite and some dyspnea. He had borrowed a walker from a neighbor. Previously had not needed assisted walking. He does have a history of coronary disease and diabetes. He sees cardiology out of [facility] with the appointments being seen in [place]. His basic blood count was good. Chemistry panel showed elevated creatinine of 3.0 with the most previous on record from a month ago 2.6. Prior to that was about a year ago 1.7. Basic electrolytes are okay except slightly low potassium at 3.2. Ketones are negative. Sugar is at 198. Of concern his BNP is elevated in the 4000 range without prior comparison or with prior comparisons being 1-2000 in the past. Troponin is elevated at 686 with a repeat 653. Viral panel testing is negative. Urinalysis did not show any signs of infection. At this point I would assume he had a recent CA leading to the weakness and some element of failure though he is only demonstrating mild orthopnea and no peripheral edema. No obvious viral infection based on the symptoms and viral panel so cardiomyopathy would still be a consideration but less likely. I feel he needs further evaluation from a cardiology perspective as it does seem like a honest myocardial injury with that level of troponin elevation. We have given him some IV fluids here gently to help with the renal function. I do not want to fluid overload without better assessment of his contractility and cardiac output. He is given aspirin and Lovenox and a beta-mikki. I talked with cardiology on-call, Dr. Culp who did feel it appropriate for the patient to be transferred for further heart evaluation. His elbow fracture was splinted and slung. I did talk with Ortho, who felt the elbow fracture was actually more complicated than their facility, so advocated a different facility from that perspective. We did get a call back from [facility] in [place] and I talked to Dr. Amador who was accepting care of the patient. They will involve cardiology and orthopedics. He was the hospitalist and accepting. I reviewed the findings with him. He suggested trying some Lasix for the elevated BNP with some dyspnea. Really no stigmata of PE and the patient did not have abrupt onset and is not hypoxic. I did pull up a previous echo from January 2023 that showed an ejection fraction of 35% with the general hypertrophy but no obvious valvular disorders. The accepting provider again suggested some Lasix to see even despite the elevated creatinine in case this is a CHF as well. Obviously high enough degree of troponin elevation to need workup for non-STEMI but with the numbers flat and his symptoms over several days, it would seem likely subacute in the sense of likely the event was several days ago. Departure - Departure Disposition: 02 Transfer Acute Care Hosp Clinical Impression: Non-STEMI (non-ST elevated myocardial infarction), Elevated troponin, Diabetes, Generalized weakness, ERICH (acute kidney injury), Fall, Elbow fracture, right Condition: Stable Record reviewed to determine appropriate education?: Yes
[2023-10-28 22:44] LABS: BASOPHILS % (AUTO) 0.1 %; EOSINOPHILS % (AUTO) 0.1 %; HGB - HEMOGLOBIN 11.8 g/dL (14.0-18.0); LYMPHOCYTES # (AUTO) 0.7 10^3/uL (1.5-3.5); LYMPHOCYTES % (AUTO) 5.8 %; MEAN CORPUSCULAR HEMOGLOBIN 27.8 pg (27.0-31.0); MEAN CORPUSCULAR HGB CONC 31.9 g/dL (32.0-36.0); MEAN CORPUSCULAR VOLUME 87.1 fL (80.0-94.0); MEAN PLATELET VOLUME 9.6 fL (7.4-11.4); MONOCYTES # (AUTO) 1.7 10^3/uL (0.0-1.0); MONOCYTES % (AUTO) 13.2 %; NEUTROPHILS # (AUTO) 10.2 10^3/uL (1.5-6.6); NEUTROPHILS % (AUTO) 80.3 %; PLT - PLATELET COUNT 205 10^3/uL (130-450); RED BLOOD COUNT 4.25 10^6/uL (4.70-6.10); RED CELL DISTRIBUTION WIDTH 16.1 % (12.0-15.0); WHITE BLOOD COUNT 12.7 x10^3/uL (4.8-10.8)
[2023-10-28 22:53] LABS: KETONES, SERUM (ACETEST) NEGATIVE (NEGATIVE)
[2023-10-28] MEDS: SODIUM CHLORIDE 0.9% 1,000 ML IV STA (23:04)
[2023-10-28 23:06] LABS: TROPONIN I HIGH SENSITIVITY 686.6 ng/L (2.3-19.7)
[2023-10-28 23:07] LABS: ALBUMIN 3.4 g/dL (3.2-5.5); ALBUMIN/GLOBULIN RATIO 1.3 (1.0-2.2); ALKALINE PHOSPHATASE 47 IU/L (42-121); ALT ALANINE AMINOTRANSFERASE 17 IU/L (10-60); AST ASPARTATE AMINOTRANSFERASE 15 IU/L (10-42); BILIRUBIN,TOTAL 0.6 mg/dL (0.2-1.0); BUN - BLOOD UREA NITROGEN 51 mg/dL (6-20); CARBON DIOXIDE - CO2 21 mmol/L (21-32); CHLORIDE 102 mmol/L (101-111); GFR - MDRD 21 (>89); GLUCOSE 198 mg/dL (74-104); MAGNESIUM 2.3 mg/dL (1.7-2.3); PHOSPHORUS 3.8 mg/dL (2.5-5.0); POTASSIUM 3.2 mmol/L (3.5-4.5); SODIUM 135 mmol/L (135-145); TOTAL PROTEIN 6.1 g/dL (6.4-8.9)
[2023-10-28 23:11] LABS: LIPASE < 10 U/L (11-82)
[2023-10-28 23:13] LABS: THYROID STIMULATING HORMONE 1.81 uIU/mL (0.34-5.60)
--- NOTE | 2023-10-28 23:38 | CT Report ---
PROCEDURE: Head WO INDICATIONS: general weakness, recent fall TECHNIQUE: Helical axial CT of the brain was obtained without contrast and reformatted in multiple p lanes. Radiation dose reduction was achieved using automated exposure control or adjustment of mA and /or kV according to patient size. COMPARISON: None FINDINGS: CSF spaces: Ventricles are appropriate in size and position. No hydrocephalus. Basal cisterns unre markable. Brain: No midline shift. No intracranial masses or hemorrhage. Prince-white matter interface is norm al. Skull and face: Calvarium and skull base are unremarkable without suspicious lesion. Sinuses: Bilateral small maxillary sinus retention cysts IMPRESSION: Atrophy and chronic ischemic change without intracranial hemorrhage or mass effect Reviewed by: Terrance West MD on 10/28/2023 10:37 PM AKDT Approved by: Terrance West MD on 10/28/2023 10:37 PM AKDT Station ID: [id number]
[2023-10-28] MEDS: POTASSIUM CHLOR 10 MEQ/100 ML 10 MEQ/100 ML BAG IV ONE (23:40)
--- NOTE | 2023-10-28 23:46 | XRAY Report ---
PROCEDURE: Chest 1V INDICATIONS: weakness, dyspnea TECHNIQUE: One view of the chest was acquired. COMPARISON: 10/23/2022 FINDINGS: Surgical changes and devices: None. Lungs and pleura: No pleural effusions or pneumothorax. Lungs are clear. Mediastinum: Mediastinal contours appear normal. Heart size is normal. Bones and chest wall: No suspicious bony lesions. Overlying soft tissues appear unremarkable. IMPRESSION: No acute cardiopulmonary findings Reviewed by: Terrance West MD on 10/28/2023 10:45 PM AKDT Approved by: Terrance West MD on 10/28/2023 10:45 PM AKDT Station ID: [id number]
--- NOTE | 2023-10-28 23:52 | XRAY Report ---
PROCEDURE: Elbow 3+V RT INDICATIONS: fall with elbow swelling TECHNIQUE: 3 views of the elbow were acquired. COMPARISON: None FINDINGS: Bones: Comminuted intra-articular distal humeral fracture with rotation and displacement of the raymon ral condyles Soft tissues: Significant dorsal soft tissue swelling. No radiopaque foreign body. IMPRESSION: Comminuted intra-articular distal humeral fracture with displacement and rotation of the distal fract ure fragments Reviewed by: Terrance West MD on 10/28/2023 10:50 PM BAMBI Approved by: Terrance West MD on 10/28/2023 10:50 PM AKMELODY Station ID: [id number]
[2023-10-29] LABS: DIFFERENTIAL COMMENT MANUAL=AUTO DIFF; PLATELET ESTIMATE, MANUAL NORMAL (130-450,000) (NORMAL); PLATELET MORPHOLOGY NORMAL APPEARANCE (NORMAL)
[2023-10-29] MEDS: SODIUM CHLORIDE 0.9% 1,000 ML IV STA (00:30)
[2023-10-29 00:31] LABS: B. PARAPERTUSSIS- RESP PCR PAN NOT DETECTED; B. PERTUSSIS- RESP PCR PANEL NOT DETECTED; C. PNEUMONIAE- RESP PCR PANEL NOT DETECTED; CORONAVIRUS 229E-RESP PCR NOT DETECTED; CORONAVIRUS HKU1-RESP PCR NOT DETECTED; CORONAVIRUS NL63-RESP PCR NOT DETECTED; CORONAVIRUS OC43-RESP PCR NOT DETECTED; HUMAN METAPNEUMOVIRUS NOT DETECTED; INFLUENZA A- RESP PCR PANEL NOT DETECTED; INFLUENZA B - RESP PCR PANEL NOT DETECTED; M. PNEUMONIAE- RESP PCR PANEL NOT DETECTED; PARAINFLUENZA VIRUS 1 NOT DETECTED; PARAINFLUENZA VIRUS 2 NOT DETECTED; PARAINFLUENZA VIRUS 3 NOT DETECTED; PARAINFLUENZA VIRUS 4 NOT DETECTED; RHINOVIRUS/ENTEROVIRUS NOT DETECTED; RSV- RESP PCR PANEL NOT DETECTED; SARS-CoV-2 -RESP PCR PANEL NOT DETECTED
[2023-10-29] MEDS: ASPIRIN CHEW 81 MG TABLET PO STA (01:05)
[2023-10-29] MEDS: METOPROLOL TARTRATE 25 MG TABLET PO STA (01:05)
[2023-10-29] MEDS: ENOXAPARIN 60 MG/0.6 ML SYRINGE SUBQ STA (01:05)
[2023-10-29] MEDS ORDERED: METOPROLOL TARTRATE 25 MG TABLET ONE (01:11)
[2023-10-29 01:46] LABS: BILIRUBIN,URINE NEGATIVE (NEGATIVE); GLUCOSE, URINE (UA) >=1000 mg/dL (NEGATIVE); KETONES,URINE (UA) NEGATIVE (NEGATIVE); LEUKOCYTE ESTERASE, URINE NEGATIVE (NEGATIVE); NITRITE,URINE NEGATIVE (NEGATIVE); OCCULT BLOOD,URINE MODERATE (NEGATIVE); PH,URINE 5.5 PH (5.0-7.5); PROTEIN,URINE >=300 mg/dL (NEGATIVE); UROBILINOGEN,URINE 0.2 (NORMAL) E.U./dL (NORMAL)
[2023-10-29 02:03] LABS: CLARITY,URINE CLEAR (CLEAR)
[2023-10-29 02:04] LABS: AMPHETAMINE SCREEN,URINE NEGATIVE (NEGATIVE); BACTERIA,URINE None Seen /HPF (None Seen); BARBITURATE SCREEN,UR NEGATIVE (NEGATIVE); BENZODIAZEPINES SCREEN, URINE NEGATIVE (NEGATIVE); BUPRENORPHINE SCREEN, URINE NEGATIVE (NEGATIVE); CASTS, URINE 3-5 Course Granular /LPF; COCAINE SCREEN URINE NEGATIVE (NEGATIVE); METHADONE SCREEN, URINE NEGATIVE (NEGATIVE); METHAMPHETAMINES SCREEN, URINE NEGATIVE (NEGATIVE); OPIATE SCREEN, URINE NEGATIVE (NEGATIVE); OXYCODONE SCREEN, URINE NEGATIVE (NEGATIVE); SQUAMOUS EPITHELIAL CELL,UR RARE Squamous (<= Few); THC CANNABINOID SCREEN, URINE NEGATIVE (NEGATIVE); TRICYCLIC ANTIDEPRESSANT,URINE NEGATIVE (NEGATIVE); WBC,URINE 0-3 /HPF (0-3); YEAST,URINE PRESENT
[2023-10-29] MEDS: LACTATED RINGERS 1,000 ML IV STA (03:56)
[2023-10-29 06:46] LABS: CALCIUM 8.4 mg/dL (8.5-10.3); CREATININE 2.9 mg/dL (0.6-1.3); MAGNESIUM 2.1 mg/dL (1.7-2.3)
[2023-10-29] MEDS: FUROSEMIDE 40 MG/4 ML VIAL IVP STA (06:56)
[2023-10-29] MEDS: ATORVASTATIN 40 MG TABLET PO SCH (08:24)
[2023-10-29] MEDS: ACETAMINOPHEN 325 MG TABLET PO SCH (08:24)
[2023-10-29] MEDS: amLODIPine 5 MG TABLET PO SCH (08:24)
[2023-10-29] MEDS: ASPIRIN EC 81 MG TABLET PO SCH (08:25)
[2023-10-29] MEDS: METOPROLOL SUCCINATE 25 MG TABLET PO SCH (08:25)
[2023-10-29] MEDS: oxyCODONE 5 MG TABLET PO PRN (08:26)
[2023-10-29] MEDS: HEPARIN 5,000 UNIT/ML VIAL SUBQ SCH (08:27)
[2023-10-29] MEDS: calcitrioL 0.25 MCG CAPSULE PO SCH (08:38)
[2023-10-29 09:18] VITALS: BP 125/65; O2SAT 96
[2023-10-29] MEDS ORDERED: INSULIN GLARGINE-YFGN 300 UNIT/3 ML PEN SUBQ SCH (21:00)
== END 2023-10-29 09:32 | disposition short-term general hospital (02) ==
LOC: EDUNIT# → ED 22:07
DX: I21.4 Non-ST elevation (NSTEMI) myocardial infarction (principal); E11.9 Type 2 diabetes mellitus without complications; N17.9 Acute kidney failure, unspecified; S42.491A Other displaced fracture of lower end of right humerus, initial encounter for closed fracture; W18.30XA Fall on same level, unspecified, initial encounter; E78.00 Pure hypercholesterolemia, unspecified; F17.200 Nicotine dependence, unspecified, uncomplicated; I25.10 Atherosclerotic heart disease of native coronary artery without angina pectoris; Z79.4 Long term (current) use of insulin; Z79.84 Long term (current) use of oral hypoglycemic drugs; Z79.899 Other long term (current) drug therapy; G31.9 Degenerative disease of nervous system, unspecified; R53.1 Weakness
CPT/HCPCS: 29105; 36415; 51702; 70450; 71045; 73080; 80048; 80053; 80306; 81001; 82009; 82607; 83690; 83735; 83880; 84100; 84443; 84484; 85025; 87070; 87633; 93005; 96361; 96365; 96372; 96375; 99285; A9270; J1650; J1815; J7120; 81003; 87086